=== PATIENT | male | born 1940 | race Caucasian/White ===

== ENCOUNTER → 2017-03-14 | Outpatient (CLI) | payer OTHER ==
[~2017-03-14] MED LIST: ACET-1256 PO; ASPEC325 PO; CLOP1TAB15 PO; HYDC25 PO; METO25TA56 PO; METO50TA16 PO; MULT-506 PO; SIMV40TA2 PO
[2017-03-14 13:28] LABS: ALT/SGPT 59 U/L (12-78); AST/SGOT 48 U/L (15-37); BLOOD UREA NITROGEN 20 mg/dl (7-18); BUN/CREATININE RATIO 19.6 (10-20); CALCIUM 9.1 mg/dl (8.5-10.1); CARBON DIOXIDE 31 mmol/L (21-32); CHLORIDE 103 mmol/L (98-107); GLUCOSE 96 mg/dl (70-99); POTASSIUM 3.6 mmol/L (3.5-5.1); SODIUM 141 mmol/L (136-145)
[2017-03-14 13:32] LABS: CHOLESTEROL 107 mg/dl (0-200); HDL CHOLESTEROL 36 mg/dl; LDL CHOLESTEROL CALCULATED 53 mg/dl; TRIGLYCERIDES 88 mg/dl (0-150); VERY LOW DENSITY LIPOPROT CALC 18 mg/dl
== END | disposition home or self-care (01) ==
LOC: C.LABMFLN 06:59
PROVIDERS: ATTEND Family Medicine
DX: I10 Essential (primary) hypertension (principal); E78.00 Pure hypercholesterolemia, unspecified; I25.10 Atherosclerotic heart disease of native coronary artery without angina pectoris

== ENCOUNTER → 2017-09-12 | Outpatient (CLI) | payer OTHER ==
[2017-09-12 13:10] LABS: BASO % 0.7 %; BASO ABS # 0.03 K/uL (0-0.2); COMPLETE YES; EOS % 3.5 %; HEMATOCRIT 45.3 % (42-52); IG% 0.2 %; LYMPH % 28.3 %; LYMPH ABS # 1.14 K/uL (1.2-3.4); MEAN CELL VOLUME 84.5 fL (80-100); MEAN CORPUSCULAR HEMOGLOBIN 29.5 pg (25-34); MEAN CORPUSCULAR HGB CONC 34.9 g/dl (32-36); MEAN PLATELET VOLUME 9.9 fL (7.4-10.4); MONO % 13.6 %; NEUT % 53.7 %; PLATELET COUNT 173 K/uL (130-400); RED BLOOD COUNT 5.36 M/uL (4.7-6.1); WHITE BLOOD COUNT 4.03 K/uL (4.8-10.8)
[2017-09-12 13:46] LABS: ALT/SGPT 70 U/L (12-78); AMYLASE 157 U/L (25-115); BLOOD UREA NITROGEN 18 mg/dl (7-18); BUN/CREATININE RATIO 16.2 (10-20); CARBON DIOXIDE 31 mmol/L (21-32); CHLORIDE 102 mmol/L (98-107); CREATININE 1.08 mg/dl (0.60-1.40); GLUCOSE 112 mg/dl (70-99); POTASSIUM 3.3 mmol/L (3.5-5.1); SODIUM 138 mmol/L (136-145)
[2017-09-12 13:49] LABS: ALB/GLOB RATIO 1.1 (0.9-2); ALKALINE PHOSPHATASE 62 U/L (45-117); AST/SGOT 49 U/L (15-37)
== END | disposition home or self-care (01) ==
LOC: C.LABMFLN 07:52
PROVIDERS: ATTEND Family Medicine
DX: R10.12 Left upper quadrant pain (principal); R10.13 Epigastric pain

== ENCOUNTER → 2017-09-16 | Outpatient (CLI) | payer OTHER ==
[2017-09-16 12:40] LABS: URINE APPEARANCE CLEAR (CLEAR); URINE BILIRUBIN NEG (NEG); URINE COLOR DK YELLOW; URINE NITRITE NEG (NEG); URINE PH 5.5 (4.5-7.5); URINE SPECIFIC GRAVITY 1.028 (1.000-1.030); UROBILINOGEN NEG (NEG)
[2017-09-16 12:46] LABS: MANUAL MICROSCOPIC REQUIRED? NO; REVIEW REQ? NO
[2017-09-16 13:34] LABS: AST/SGOT 39 U/L (15-37); BLOOD UREA NITROGEN 19 mg/dl (7-18); CALCIUM 9.1 mg/dl (8.5-10.1); CARBON DIOXIDE 31 mmol/L (21-32); CHLORIDE 102 mmol/L (98-107); CREATININE 1.06 mg/dl (0.60-1.40); GLUCOSE 103 mg/dl (70-99); POTASSIUM 4.1 mmol/L (3.5-5.1); SODIUM 136 mmol/L (136-145)
[2017-09-16 13:37] LABS: ALT/SGPT 52 U/L (12-78); CHOLESTEROL 115 mg/dl (0-200); CHOLESTEROL/HDL RATIO 3.4; HDL CHOLESTEROL 34 mg/dl; LDL CHOLESTEROL CALCULATED 56 mg/dl; TRIGLYCERIDES 127 mg/dl (0-150); VERY LOW DENSITY LIPOPROT CALC 25 mg/dl
== END | disposition home or self-care (01) ==
LOC: C.LABMFLN 07:02
PROVIDERS: ATTEND Family Medicine
DX: R10.12 Left upper quadrant pain (principal); R10.32 Left lower quadrant pain; I25.10 Atherosclerotic heart disease of native coronary artery without angina pectoris; E78.00 Pure hypercholesterolemia, unspecified; I10 Essential (primary) hypertension

== ENCOUNTER → 2017-09-17 | Outpatient (CLI) | payer OTHER ==
--- NOTE | 2017-09-17 07:05 | DIAGNOSTIC IMAGING REPORT ---
ABDOMEN LIMITED (US) CLINICAL HISTORY: 77 years-old Male presenting with R10.12 Abdominal pain, acute, left upper [id number] Epigastric. TECHNIQUE: Real-time grayscale and limited color Doppler ultrasound imaging of the abdomen limited to the right upper quadrant was performed. COMPARISON: None. FINDINGS: Pancreas: Visualized portions of the pancreatic head and body normal. Liver: Normal echogenicity and echotexture. The liver measures 15.7 cm in maximal sagittal dimension. No sonographic evidence of hepatic mass. Main portal vein patent with normal directional flow. Biliary: No intrahepatic biliary ductal dilatation. Common bile duct measures up to 4 mm in diameter. Gallbladder: Gallstones without evidence of gallbladder distention, wall thickening, or pericholecystic fluid or inflammatory change. Kidneys: Normal in appearance. No hydronephrosis. Spleen: Normal appearance and size, measuring 10 cm. Ascites: None. IMPRESSION: Cholelithiasis without evidence of cholecystitis or biliary ductal dilatation. Electronically signed by: Los Howard M.D. 09/17/2017 7:04 AM Dictated Date/Time: 09/17/2017 7:02 AM
--- NOTE | 2017-09-17 07:53 | DIAGNOSTIC IMAGING REPORT ---
GI SERIES W/AIR ROUTINE CLINICAL HISTORY: R10.12 Abdominal pain, acute, left upper [id number] epigastric pain COMPARISON STUDY: None FLUOROSCOPY TIME: 2.5 minutes. NUMBER OF FLUOROSCOPIC IMAGES: 20 FINDINGS: The patient swallowed effervescent granules and barium without difficulty. There is a sliding hiatal hernia. There is very subtle granularity to the distal esophageal mucosa, likely secondary to reflux esophagitis. No gastric masses or ulcerations are visualized. There is subtle nodularity of the duodenal bulb, possibly secondary to lymphoid hypertrophy. No ulcers are visualized. There is no gastric outlet obstruction. The ligament Treitz is located in the normal anatomical position. IMPRESSION: 1. Moderate hiatal hernia 2. Slight nodularity of the duodenal bulb possibly secondary to lymphoid hyperplasia 3. Subtle granularity involving the distal esophageal mucosa, possibly secondary to reflux esophagitis Electronically signed by: Dave Waters M.D. 09/17/2017 7:51 AM Dictated Date/Time: 09/17/2017 7:49 AM
== END | disposition home or self-care (01) ==
LOC: C.ULTR 06:32
PROVIDERS: ATTEND Family Medicine
DX: R10.12 Left upper quadrant pain (principal); R10.13 Epigastric pain; K80.20 Calculus of gallbladder without cholecystitis without obstruction

== ENCOUNTER 2022-04-16 06:32 | Observation (INO) ==
--- NOTE | 2022-03-14 08:35 | PAT Medication Instructions ---
Medication Instructions Date of Service March 14, 2022 Home Medications Medication Instructions Recorded lisinopril 5 mg tablet 5 mg PO QAM #90 tab 03/17/21 metoprolol succinate 50 mg 25 mg PO .COMPLEX #180 tab 08/21/21 tablet,extended release 24 hr hydrocortisone 2.5 % topical cream 1 applic TOPICAL TID PRN #30 g 10/18/21 omeprazole 20 mg capsule,delayed 20 mg PO DAILY PRN #30 cap 10/23/21 release hydrochlorothiazide 25 mg tablet 25 mg PO QAM #90 tab 10/30/21 atorvastatin 80 mg tablet 80 mg PO PM #90 tab 12/27/21 acetaminophen 325 mg capsule (Tylenol) 325 mg PO Q6H PRN aspirin 81 mg tablet,delayed release 81 mg PO PM multivitamin 1 tab PO QAM lisinopril 5 mg tablet 5 mg PO QAM potassium chloride 10 mEq tablet,extended release 10 meq PO UD metoprolol succinate 50 mg tablet,extended release 24 hr 25 mg PO .COMPLEX hydrocortisone 2.5 % topical cream 1 applic TOPICAL TID PRN omeprazole 20 mg capsule,delayed release 20 mg PO DAILY PRN hydrochlorothiazide 25 mg tablet 25 mg PO QAM atorvastatin 80 mg tablet 80 mg PO PM Continue as directed metoprolol succinate 50 mg tablet,extended release 24 hr 25 mg PO .COMPLEX STOP taking 24 hours before surgery hydrocortisone 2.5 % topical cream 1 applic TOPICAL TID PRN DO NOT take the morning of surgery multivitamin 1 tab PO QAM lisinopril 5 mg tablet 5 mg PO QAM potassium chloride 10 mEq tablet,extended release 10 meq PO UD hydrochlorothiazide 25 mg tablet 25 mg PO QAM Take morning of surgery With a small sip of water, OTHERWISE NOTHING TO EAT OR DRINK AFTER MIDNIGHT: acetaminophen 325 mg capsule (Tylenol) 325 mg PO Q6H PRN(if needed) omeprazole 20 mg capsule,delayed release 20 mg PO DAILY PRN(if needed) Take evening before surgery acetaminophen 325 mg capsule (Tylenol) 325 mg PO Q6H PRN(if needed) aspirin 81 mg tablet,delayed release 81 mg PO PM (unless directed otherwise by surgeon) atorvastatin 80 mg tablet 80 mg PO PM Other Notes If you have any questions please call us at [phone] or [phone] or [phone] or [phone]
--- NOTE | 2022-03-16 13:32 | Anesthesiology Consultation ---
Date of Service March 16, 2022 Assessment & Plan (1) Encounter for pre-operative examination: - Patient acceptable risk for surgery pending surgeon-ordered cardiology preop evaluation (03/21; MNP) and PCP preop evaluation (03/29; MNP) - COVID screening: Per assessment on 03/16: No known COVID-19 positive contacts or current COVID-19 related symptoms. Travel screen negative. Patient vaccinated. Surgeon arranging preop COVID testing. Awaiting results. Chart Review Chart Review: Patient seen in Pre Admission Testing Teaching & Discussion Pre-Anesthesia Teaching/Discussion Notes: Instructed NPO after midnight before surgery,except medications with 15 cc of water. Medication instructions provided according to the PAT guidelines. History Surgery Operation Date: 04/16/22 07:15 Proposed Procedures p Right Reversed Total Shoulder Arthroplasty - Omer Gaona MD Height/Weight Height: 5 ft 8 in Weight: 70.4 kg Allergies Allergy/AdvReac Type Severity Reaction Status Date / Time No Known Allergies Verified 03/14/22 07:34 Medications Home Medications Medication Instructions Recorded Confirmed Last Taken acetaminophen 325 mg capsule 325 mg PO Q6H PRN 02/16/19 03/14/22 03/08/19 (Tylenol) aspirin 81 mg tablet,delayed 81 mg PO PM 02/16/19 03/14/22 03/08/19 release multivitamin 1 tab PO QAM 02/16/19 03/14/22 03/08/19 lisinopril 5 mg tablet 5 mg PO QAM #90 tab 03/17/21 03/14/22 Unknown potassium chloride 10 mEq 10 meq PO UD 06/12/21 03/14/22 Unknown tablet,extended release metoprolol succinate 50 mg 25 mg PO .COMPLEX #180 tab 08/21/21 03/14/22 Unknown tablet,extended release 24 hr hydrocortisone 2.5 % topical cream 1 applic TOPICAL TID PRN #30 g 10/18/21 03/14/22 Unknown omeprazole 20 mg capsule,delayed 20 mg PO DAILY PRN #30 cap 10/23/21 03/14/22 Unknown release hydrochlorothiazide 25 mg tablet 25 mg PO QAM #90 tab 10/30/21 03/14/22 Unknown atorvastatin 80 mg tablet 80 mg PO PM #90 tab 12/27/21 03/14/22 Unknown Past Medical History Medical History (Updated 03/16/22 @ 13:30 by Shy Bain) CAD in [place] artery s/p CABG (2008), stent (2011) Diverticular disease GERD (gastroesophageal reflux disease) mild Hearing deficit BL MAXWELL History of sciatica Hyperlipidemia Hypertension Osteoarthritis Right lumbar radiculopathy Exercise / Class Metabolic Activity II 4-5 Yardwork/Stairs/Walk up hill Past Family History Family History Father Cirrhosis Mother CHF (congestive heart failure) Heart disease Hypertension Sister Cancer Breast cancer Brother Cancer Past Surgical History Surgical History (Updated 03/16/22 @ 13:30 by Shy Bain) History of appendectomy History of cardiac cath 2008 > CABG 2011 > stent x1 History of colonoscopy History of coronary artery bypass graft 2008 History of left cataract surgery History of prostate biopsy benign History of tooth extraction Hx of right cataract extraction S/P coronary artery stent placement 2011 S/P rotator cuff surgery right Status post Mohs surgery nose Past Anesthesia History No Hx of Anesthesia Complications and No Family Hx of Anesthesia Complications History of PONV No Hx of PONV and No Hx of Motion Sickness Social History Smoking Status: Former smoker tobacco type: cigarettes Do You Dip or Chew Tobacco: No Smoking End Date: Quit 1966 Hx Alcohol Use: Yes (Occasional) Alcohol type: wine Hx Substance Use: No substance use type: does not use Review of Systems Patient denies chest pain, shortness of breath, dyspnea on exertion, fever, chills, cough, wheezing, palpitations. Physical Exam Vital Signs VITALS BP 117/71 P 69 TEMP 98.5 SP02 95%RA RESP 16 PHYSICAL Full cervical extension range of motion. Full TMJ range of motion. TMD 3 finger breaths Mallampati Score 4 (small oral opening) Dentition: upper/lower full dentures Lungs: clear throughout to auscultation Cardiac: regular rate and rhythm, no murmurs noted Spine: normal Carotid arteries: negative bruit Extremities: no edema Lab Results Anesthesia Preop Results Results Anesthesia Widget: WBC 5.26 K/uL (4.8-10.8) 03/16/22 Hgb 14.0 g/dL (14.0-18.0) 03/16/22 Hct 41.8 % (42-52) L 03/16/22 Plt 174 K/uL (130-400) 03/16/22 Na 138 mmol/L (136-145) 03/16/22 K 3.7 mmol/L (3.5-5.1) 03/16/22 Cl 102 mmol/L (98-107) 03/16/22 CO2 28 mmol/L (21-32) 03/16/22 BUN 25 mg/dl (6-23) H 03/16/22 Creat 1.19 mg/dl (0.6-1.4) 03/16/22 Glucose Level 126 mg/dl (70-99(Fasting)) H 03/16/22 PT 10.6 Seconds (9.0-12.0) 03/16/22 PTT 26.8 Seconds (21.0-31.0) 03/16/22 INR 1.0 (0.9-1.1) 03/16/22 HA1c 6.2 % (4.5-5.6) H 03/16/22 Urine Color Yellow 03/16/22 Urine Appearance Clear (Clear) 03/16/22 Urine pH 6.0 (4.5-7.5) 03/16/22 Urine Specific [place] 1.019 (1.000-1.030) 03/16/22 Urine Protein Negative (Negative) 03/16/22 Urine Glucose (UA) Negative (Negative) 03/16/22 Urine Ketones Negative (Negative) 03/16/22 Urine Blood Negative (Negative) 03/16/22 Urine Nitrite Negative (Negative) 03/16/22 Urine Bilirubin Negative (Negative) 03/16/22 Urine Urobilinogen Negative (Negative) 03/16/22 Urine Leukocyte Esterase Negative (Negative) 03/16/22 Blood Type A Positive 03/16/22 Antibody Screen NEGATIVE 03/16/22 Testing Electrocardiogram Date: 06/22/21 Findings: + SB @ (57) Chest X-Ray Date: 03/16/22 FINDINGS: Lung volumes are normal. Lungs are clear. There is no pneumothorax or pleural effusion. Cardiac size is normal. Mediastinal contours are normal. There is no evidence for pulmonary edema. There are median sternotomy wires and mediastinal surgical clips. Suspected nipple shadow projects over the right lower lung. IMPRESSION: No acute cardiopulmonary findings. Echocardiogram Date: 07/05/20 EF 60 to 65%. No regional motion abnormality. Moderate RAD. Moderate to severe TR. Mild MR. Mild pulmonary hypertension. Estimated RVSP 30 mmHg. Mild KS.
--- NOTE | 2022-04-15 19:04 | History & Physical Report ---
Date of Service April 15, 2022 Assessment & Plan (1) Rotator cuff arthropathy of right shoulder: Plan: Treatment options discussed with patient. He has faile conservative measures and would like to proceed with surgical intervention. Risks, benefits and alternatives to surgery including but not limited to infection, DVT, pain, stiffness, need for revision surgery, damage to blood vessels, damage to nerves, PE, , were discussed with the patient and they wish to proceed. Plan on right reverse total shoulder arthroplasty scheduled for 04/16/22 at [facility] with Dr. Gaona. All questions answered. He will follow up post op. History of Present Illness Chief Complaint: right shoulder pain Primary Care Provider: Jairo Love MD 82 year old male with PMHx significant for CAD, GERD, HTN, high cholesterol who presents with ongoing right shoulder pain. Patient underwent rotator cuff repair last year and was found to have persistent pain and weakness. MRI confirmed failure of repair with massive retraction. Discussed with patient that this would not be amenable to repair and would require arthroplasty. He has faied conservative measures including injection and therapy. Patient denies headaches, sweats, fevers, chills, double vision, blurred vision, cough, sore throat, dysphagia, chest pain, sob, wheezing, n/v/d/c, numbness, tingling, fatigue, urinary symptoms, mood disorders. ROS positive for right shoulder pain and stiffness. Allergies Allergy/AdvReac Type Severity Reaction Status Date / Time No Known Allergies Verified 03/29/22 13:52 Home Medications Medication Instructions Recorded Confirmed Type acetaminophen 325 mg capsule 325 mg PO Q6H PRN Pain 02/16/19 03/29/22 History (Tylenol) aspirin 81 mg tablet,delayed 81 mg PO PM 02/16/19 03/29/22 History release multivitamin 1 tab PO QAM 02/16/19 03/29/22 History lisinopril 5 mg tablet 5 mg PO QAM #90 tabs 03/17/21 03/29/22 Rx potassium chloride 10 mEq 10 meq PO UD 06/12/21 03/29/22 History tablet,extended release metoprolol succinate 50 mg 25 mg PO .COMPLEX #180 tabs 08/21/21 03/29/22 Rx tablet,extended release 24 hr hydrocortisone 2.5 % topical cream 1 applic topical TID PRN skin 10/18/21 03/29/22 Rx irritation #30 grams omeprazole 20 mg capsule,delayed 20 mg PO DAILY PRN Heartburn #30 10/23/21 03/29/22 Rx release caps hydrochlorothiazide 25 mg tablet 25 mg PO QAM #90 tabs 10/30/21 03/29/22 Rx atorvastatin 80 mg tablet 80 mg PO PM #100 tabs 04/04/22 Rx Past Med/Surg History Medical History (Updated 04/15/22 @ 19:03 by Darwin Reynaga PA-C) CAD in [place] artery s/p CABG (2008), stent (2011) Diverticular disease GERD (gastroesophageal reflux disease) mild Hearing deficit BL MAXWE[place] History of sciatica Hyperlipidemia Hypertension Osteoarthritis Right lumbar radiculopathy Right shoulder pain Surgical History History of appendectomy History of cardiac cath 2008 > CABG 2011 > stent x1 History of colonoscopy History of coronary artery bypass graft 2008 History of left cataract surgery History of prostate biopsy benign History of tooth extraction Hx of right cataract extraction S/P coronary artery stent placement 2011 S/P rotator cuff surgery right Status post Mohs surgery nose Family History Father Cirrhosis Mother CHF (congestive heart failure) Heart disease Hypertension Sister Cancer Breast cancer Brother Cancer Social History Smoking Status: Former smoker Age Started Using Tobacco: 14; Age Quit Using Tobacco: 27; Second Hand Exposure: No; Hx Alcohol Use: Yes (Occasional) Alcohol type: wine Hx Substance Use: No Preferred Language: Ukrainian Communication Ability: Effective 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 Beliefs That Will Affect Care: None Current Living Situation: Alone current occupational status: retired Feels Safe at Home: Yes caffeine: No Dental Care, Regularly: No Physical Activity Frequency: Does not Exercise Seatbelt Use: always Do you think of yourself as: straight/heterosexual Assistive Devices: Denture - Upper, Denture - Lower, Glasses and Hearing Aid - Bilateral Review of Systems All systems reviewed & are unremarkable except as noted in HPI & below Physical Exam Constitutional: well developed and well nourished; no acute distress Eyes: PERRL, conjunctivae normal, anicteric sclerae ENMT: external ear and nose normal, oropharynx normal Neck: trachea midline, no thyromegaly Respiratory: normal respiratory effort, lungs clear to auscultation Cardiovascular: RRR, no murmur, no edema Musculoskeletal: Right shoulder: Tenderness anterolateral acromion. Crepitus with ROM. FF to 120, abduction to 150, ER to 45 degrees. Weakness with strength testing, 3/5 abduction, 4+/5 ER and IR. Skin: no rashes, warm and dry Neurologic: patellar DTR's 2+ bilat, sensation intact Psychiatric: A+Ox3, euthymic affect Results & Data ([place]) Diagnostic Findings Right shoulder radiographs demonstrate mild proximal migration humeral head, degenerative changes AC joint. MRI demonstrates failed rotator cuff repair with massive tear with retraction.
[~2022-04-16 06:32] MED LIST changes: -ACET-1256 PO; +ACETAMINOPHEN 500 MG TAB PO SCH; -ASPEC325 PO; +BUPIVACAINE 0.25% 30 ML VIAL ONE; +BUPIVACAINE 0.5 % 5 MG/1 ML PF 10ML VIAL ONE; -CLOP1TAB15 PO; +CeleBREX 200 MG CAP PO SCH; +FAMOTIDINE 20 MG TAB PO SCH; +GABAPENTIN 300 MG CAP PO SCH; -HYDC25 PO; +LR 15ML/HR IV SCH; -METO25TA56 PO; -METO50TA16 PO; +METOCLOPRAMIDE HCL 10 MG TABLET PO SCH; -MULT-506 PO; -SIMV40TA2 PO; +TRANEXAMIC ACID 1,000 MG **IV Intra-op IV SCH; +TRANEXAMIC ACID 1,000 MG **IV Pre-op IV SCH; +ceFAZolin 1000MG 1,000 MG/7.5 ML SYR IV SCH; +dexAMETHasone 4 MG TAB PO SCH
[2022-04-16] MEDS ORDERED: PROPOFOL IV EMULSION 10 MG/ML 20 ML VIAL IV ONE (07:08)
[2022-04-16] MEDS ORDERED: DEXAMETHASONE SOD INJ 4 MG/ML VIAL ONE (07:08)
[2022-04-16] MEDS ORDERED: LIDOCAINE 2% 2 ML VIAL/AMP(20MG/ML) INFIL ONE (07:08)
[2022-04-16] MEDS ORDERED: ONDANSETRON INJ 2 MG/ML 2 ML VIAL ONE (07:08)
[2022-04-16] MEDS ORDERED: ROCURONIUM BROMIDE 10 MG/ML 5 ML VIAL IV ONE (07:08)
[2022-04-16] MEDS ORDERED: fentaNYL citrate 100 MCG/2 ML VIAL ONE (07:09)
--- NOTE | 2022-04-16 07:19 | History & Physical Bridge Note ---
Date of Service April 16, 2022 History & Physical Bridge Note I have examined the patient, reviewed the History & Physical and in the interval since the performance of the History & Physical I have noted the following changes of clinical significance: Resolving bruising right shoulder most likely related to some subacute internal bleeding due to being on aspirin and [id number] articulation.
[2022-04-16] MEDS ORDERED: ONDANSETRON INJ 2 MG/ML 2 ML VIAL IV PRN ×2 (07:48→13:25)
[2022-04-16] MEDS ORDERED: PROMETHAZINE HCL 6.25 MG in SODIUM CHLORIDE 0.9% 50 ML IV PRN (07:48)
[2022-04-16] MEDS ORDERED: fentaNYL citrate 100 MCG/2 ML VIAL IV PRN (07:48)
[2022-04-16] MEDS ORDERED: ATROPINE SULFATE 0.1 MG/ML 10ML SYR IV PRN (07:48)
[2022-04-16] MEDS ORDERED: ePHEDrine sulfate 50 MG/ML AMP IV PRN (07:48)
[2022-04-16] MEDS ORDERED: MIDAZOLAM HCL 1 MG/ML 2ML VIAL ONE (08:47)
[2022-04-16] MEDS ORDERED: ePHEDrine sulfate 50 MG/ML SYR ONE (09:30)
[2022-04-16] MEDS ORDERED: GLYCOPYRROLATE 0.2 MG/ML VIAL ONE (11:30)
[2022-04-16] MEDS ORDERED: NEOSTIGMINE METHYLSULFATE 1 MG/ML 10ML VIAL ONE (11:30)
--- NOTE | 2022-04-16 11:41 | Operative Report ---
Post Operative Report Pre & Post Diagnosis Operation Date: 04/16/22 09:25 Pre-Op Diagnosis: Right Shoulder Rotator Cuff Arthropathy, failed rotator cuff repair, irreparable rotator cuff tear. Post-Op Diagnosis: Right Shoulder Rotator Cuff Arthropathy, failed rotator cuff repair, irreparable rotator cuff tear, long head biceps rupture I identified the patient and participated in the time-out.: Yes Procedure Operation Date: 04/16/22 09:25 Actual Procedures p Right Reversed Total Shoulder Arthroplasty--Uncemented(Right), removal hardware (suture anchors multiple and suture material)- Omer Gaona MD Surgeon Omer Gaona MD Sewer Pipe Layer Helper Tay MANUEL Estimated Blood Loss 80 Findings Consistent with Post-Op Diagnosis Specimens Humeral head cut Drains 2 Hemovac Anesthesia Type General Regional Complications none Disposition Disposition: Recovery Room Indications 82-year-old male who had a prior rotator cuff repair with pain weakness right shoulder with MRI demonstrating failed rotator cuff repair with retracted tissue prior suture anchors subacromial bursitis and glenohumeral joint effusions. Proximal migration of the humerus Description of Procedure The patient was taken to the operating room and anesthetized under regional block and general anesthetic. The patient was positioned on the operating table in a 30 beach chair position with a towel roll under the medial border of the right scapula. The arm was draped free to be able to manipulate the shoulder as needed. The right upper extremity was prepped and draped in usual sterile fashion. Exam demonstrated 150 degrees forward flexion 90 degrees abduction 80 degrees external rotation. There are some subacute bruising that was resolving area around the shoulder and he also had some anterior subluxation of the sternoclavicular joint on the ipsilateral side. An anterior deltopectoral approach was performed. A longitudinal incision was made in the deltopectoral interval. The skin was incised sharply. Subcutaneous flaps were elevated off the fascia. The cephalic vein was dissected out and retracted lateral with the deltoid. The clavipectoral fascia was divided at the lateral margin of the conjoined tendon and extended up to the CA ligament. The following findings were noted: Biceps tendon was ruptured and there was a thickened biceps sheath noted. There was chronic subacromial bursitis and a full-thickness rotator cuff tear with a strand of the supraspinatus still attached but large gap between the supraspinatus and posterior intact cuff tissue which was the teres minor and a small portion of the infraspinatus only. The subscapularis was still intact.. The upper centimeter of the pectoralis was released for inferior exposure. A self-retaining retractor was placed. The biceps tendon sheath was divided and resected proximally. The subscapularis muscle fibers were split longitudinally at the level of the circumflex vessels. The circumflex vessels were identified and tied off with silk ties and divided laterally. A Kitner elevator was used to free up the inferior fibers of the subscapularis off of the capsule. The axillary nerve was identified with a tug test and protected with a blunt Rayshawn retractor between the nerve and the capsule. The subscapularis tendon was then taken down off of the lesser tuberosity subperiosteally, a Vicryl traction suture was placed and a subperiosteal dissection was performed along the neck of the humerus as the arm was gradually externally rotated exposing the humeral h ead. The humeral head findings demonstrated no osteophytes and minimal arthritic changes. A Carpenter elevator was used to assist in releasing the capsule of the neck of the humerus. The capsule was divided with Rhoades scissors down to the glenoid released off the anterior glenoid and the rotator interval was released to meet the capsular release and a 360 release of the subscapularis was accomplished. A Fukuda retractor was placed into the joint retracting the humeral head posterior. Glenoid findings demonstrated minimal arthritic changes still with intact articular cartilage. The labrum and biceps tendon was resected. an anterior-inferior and posterior inferior capsular release were performed with electrocautery and a Carpenter elevator on bone with the axillary nerve protected inferiorly by the retractor. Attention was then taken to the humeral preparation. Initially for exposure of the portion of rotator cuff that was still attached to the greater tuberosity which was just under a centimeter was released. The cutting guide was placed into the humeral head. It was positioned at 20 of retroversion. Oscillating saw was used to resect the humeral head giving the cut above the level of the posterior rotator cuff insertion site. Multiple peek suture anchors were removed along with suture material that were required to be removed in order to instrument the canal. [place] and scalpel were used. The humerus was then prepared for the stem. I used the ascend flex stem from [employer]. The sizing broaches were used followed by trial broaches up to a size 5 which had the appropriate fit and fill. The appropriate sized cut protector was placed. The humerus was then retracted posterior to the glenoid. The glenoid was sized for a 25 mm baseplate. The guide for the baseplate was positioned in a 10 inferior tilt and the central drill hole was made. The reamer for the 25 mm baseplate was used. The central drill was widened for the peg. The hydroxyapatite-coated 25 mm aequalis baseplate was impacted into position. The base plate was transfixed with superior and inferior locking screws and anterior and posterior compression screws with stable fixation. The fan reamer was used for the 36 millimeter glenoid sphere. After irrigation the +2 offset 36 mm glenoid sphere was impacted onto the baseplate and the security screw was tightened. Attention was taken back to the humerus. The cut protector was removed and the +0 high offset humeral tray trial was assembled to the trial stem rotated appropriately to get bony coverage and then screwed in position. A trial reduction was performed. A +6, 36 mm reversed trial insert demonstrated good stability and no shuck. The trials were removed. 3 drill holes are made into the harder bone in the bicipital groove area and 3 #5 FiberWire sutures were placed transosseously. The canal was irrigated with pulsatile lavage saline solution. The final component was assembled. The final component was 5B long ascend flex stem assembled to plus or high offset tray and a +6, 36 mm reversed insert. This was then impacted into the humerus with a tight press-fit. It was reduced to the glenoid sphere. Stability was verified. Subscapularis was repaired with the #5 FiberWire sutures using Ross-John suture technique. Lateral row soft tissue repair was performed with #2 FiberWire [id number] sutures. The portion of supraspinatus was rotated posteriorly and the interval between that and the intact remaining infraspinatus was repaired with [id number] #2 FiberWire sutures in order to improve external rotation strength. The pectoralis was repaired with #2 FiberWire [id number] sutures . The arm was taken through a range of motion which demonstrated 150 degrees forward flexion 100 degrees abduction and 60 degrees external rotation without any tension on the repair. The implant was stable through the range of motion tested. The wound was copiously irrigated. 2 Hemovac drains were placed. The deltopectoral interval was closed with [id number] #1 Vicryl sutures. The subcutaneous tissues were closed with 2-0 Vicryl sutures. The skin was closed with brianna. Sterile dressings were applied and a shoulder immobilizer. Tay Reynaga my physician assistant elementary teacher acted as residential assistant throughout the procedure .He performed functions including arm positioning, soft tissue retraction, instrument management, suture management and performed the subcutaneous and skin closure and will participate in the postoperative care of the patient. I attest to the content of the Intraoperative Record and any orders documented therein. Any exceptions are noted below.
--- NOTE | 2022-04-16 13:13 | XRay Report ---
XR shoulder RT min 2V routine CLINICAL HISTORY: Post shoulder surgery. Status post total shoulder replacement COMPARISON STUDY: No previous studies for comparison. TECHNIQUE: 2 right shoulder views FINDINGS: The patient is status post total shoulder replacement with humeral head and glenoid compone nts. The prosthetic components are in anatomic alignment with no acute abnormality identified. Skin s taples are present from the recent procedure. IMPRESSION: 1. Status post total shoulder replacement ACT 112: Negative or not required by law. Electronically signed by: Yakov Wick M.D. 04/16/2022 1:12 PM
[2022-04-16] MEDS ORDERED: HYDROCORTISONE 2.5% CR 30 GM TUBE EXT PRN (13:25)
[2022-04-16] MEDS ORDERED: oxyCODONE HCL IR 5 MG TAB (IMMEDIATE RELEASE) PO PRN (13:25)
[2022-04-16] MEDS ORDERED: METOCLOPRAMIDE HCL INJ 5 MG/ML 2 ML VIAL IV PRN (13:25)
[2022-04-16] MEDS ORDERED: HYDROmorphone INJ 0.5 MG/0.5 ML SYR IV PRN (13:25)
[2022-04-16] MEDS ORDERED: bisacodyL 10 MG SUPP PR PRN (13:25)
[2022-04-16] MEDS ORDERED: MAGNESIUM HYDROXIDE SUSP 30 ML UDC PO PRN (13:25)
[2022-04-16] MEDS ORDERED: NALOXONE HCL 0.4 MG/1 ML VIAL/CARP IV PRN (13:25)
[2022-04-16] MEDS ORDERED: PANTOprazole 40 MG TAB PO PRN (13:33)
--- NOTE | 2022-04-16 13:46 | Anesthesiology Progress Note ---
Date of Service April 16, 2022 Anesthesia Post Procedure Vital Signs Vital Signs: Temp Pulse Pulse Resp BP Pulse Ox O2 Del Method 04/16/22 13:20 76 17 123/64 92 Room Air 04/16/22 13:10 71 16 115/68 91 Room Air 04/16/22 12:55 74 18 128/70 94 Room Air 04/16/22 12:40 70 19 126/72 92 Room Air 04/16/22 12:30 36.1 C L 74 22 116/76 93 Room Air 04/16/22 12:20 70 16 134/75 97 Oxymask 04/16/22 12:10 73 17 142/94 H 96 Oxymask 04/16/22 12:00 71 16 126/74 98 Oxymask 04/16/22 11:52 36 C L 70 14 131/74 99 Oxymask 04/16/22 06:58 36.8 C 65 18 138/73 94 Room Air O2 Flow Rate 04/16/22 13:20 04/16/22 13:10 04/16/22 12:55 04/16/22 12:40 04/16/22 12:30 04/16/22 12:20 5 04/16/22 12:10 5 04/16/22 12:00 5 04/16/22 11:52 9 04/16/22 06:58 Transfer of Care Handoff Completed per policy Notes Mental Status: alert / awake / arousable Patient Amnestic to Procedure: Yes Nausea / Vomiting: adequately controlled Pain: adequately controlled Airway Patency, RR, SpO2: stable & adequate BP & HR: stable & adequate Hydration State: stable & adequate Anesthetic Complications: no major complications apparent Notes: block working well in pacu
[2022-04-16] MEDS: SODIUM CHLORIDE 0.9% 1000ML 1,000 ML IV SCH (14:10)
[2022-04-16] MEDS: ACETAMINOPHEN 500 MG TAB PO SCH ×3 (15:49→22:26)
[2022-04-16] MEDS ORDERED: POTASSIUM CHLORIDE 10 MEQ TABCR PO SCH (17:00)
[2022-04-16] MEDS: ceFAZolin 1000MG 1,000 MG/7.5 ML SYR IV SCH (18:35)
[2022-04-16] MEDS ORDERED: ATORVASTATIN 40 MG TAB PO SCH (21:00)
[2022-04-16] MEDS ORDERED: ASPIRIN 81 MG ECTAB PO SCH (21:00)
[2022-04-16] MEDS ORDERED: SENNA 8.6 MG TAB PO SCH (21:00)
[2022-04-16] MEDS: METOPROLOL SUCC 25MG EXT REL TAB PO SCH (21:12)
[2022-04-16] MEDS: DOCUSATE SODIUM 100 MG CAP PO SCH (21:12)
[2022-04-17] MEDS: SODIUM CHLORIDE 0.9% 1000ML 1,000 ML IV SCH (00:15)
[2022-04-17] MEDS: ceFAZolin 1000MG 1,000 MG/7.5 ML SYR IV SCH (00:59)
[2022-04-17] MEDS: ACETAMINOPHEN 500 MG TAB PO SCH (05:56)
[2022-04-17] MEDS: DOCUSATE SODIUM 100 MG CAP PO SCH (07:54)
[2022-04-17] MEDS: METOPROLOL SUCC 25MG EXT REL TAB PO SCH (07:55)
--- NOTE | 2022-04-17 08:27 | Orthopedic Progress Note ---
Date of Service April 17, 2022 Assessment & Plan (1) Rotator cuff arthropathy of right shoulder: Plan: Postop day #1 right reverse total shoulder arthroplasty -PT/OT: No formal therapy for 6 weeks. May do elbow/wrist/hand motion, shrugs, pendulums -Pain management as written -DVT prophylaxis: SCDs, aspirin 81 mg daily -A.m. labs are pending. We will hold lisinopril and hydrochlorothiazide this morning pending kidney function as well as his pressures have been a little soft this morning. -Discharge plan: Plan on discharge home, possibly later today. We will recheck patient later this morning or early afternoon for possible discharge home. Admission and Anticipated Discharge Date Admission Date: April 16, 2022 Subjective Patient is postop day 1 right reverse total shoulder. He is doing well overall. States he is feeling " a little out of it". Mild nausea. No chest pain, shortness of breath, lightheadedness or dizziness. Review of Systems Review of Systems: All systems reviewed & are unremarkable except as noted in Subjective Physical Exam Physical Exam: Right shoulder: Sling in place, dressing is clean, dry, intact. Fingers are mobile with good casino floorperson strength. Distally neurovascular status and sensation intact. Constitutional: WD/WN, vitals as above Results & Data ([facility]) Vital Signs (Past 12 Hours) Vital Signs Temp Pulse Pulse Resp BP Pulse Ox O2 Del Method 04/17/22 07:22 36.8 C 65 16 111/61 92 Room Air 04/17/22 03:45 37.0 C 67 18 104/56 L 92 Room Air 04/17/22 00:00 36.4 C L 70 18 109/63 93 Room Air 04/16/22 21:10 65 106/63 92
[2022-04-17 08:57] LABS: Basophils # (auto) 0.01 K/uL (0-0.2); Basophils % (auto) 0.1 %; Hematocrit (blood only) 38.2 % (40.1-51.0); Hemoglobin 12.6 g/dl (14.0-18.0); Immature Granulocytes # (auto) 0.06 K/uL (0.00-0.02); Immature Granulocytes % (auto) 0.5 %; Lymphocytes # (auto) 0.69 K/uL (1.2-3.4); Lymphocytes % (auto) 6.2 %; Mean Corpuscular Hemoglobin 27.6 pg (25.0-34.0); Mean Corpuscular Volume 83.6 fL (80.0-100.0); Mean Platelet Volume 9.3 fL (9.4-12.4); Monocytes # (auto) 0.73 K/uL (0.24-0.82); Monocytes % (auto) 6.6 %; Neutrophils % (auto) 86.6 %; Platelet Count 141 K/uL (130-400); RDW Coefficient of Variation 14.9 % (11.5-14.5); RDW Standard Deviation 45.1 fL (36.4-46.3); Red Blood Count 4.57 M/uL (4.63-6.08); White Blood Count 11.09 K/ul (4.8-10.8)
[2022-04-17] MEDS ORDERED: hydroCHLOROthiazide 25 MG TAB PO SCH (09:00)
[2022-04-17] MEDS ORDERED: lisinopril 5 MG TAB PO SCH (09:00)
[2022-04-17] MEDS ORDERED: MULTIVITAMIN TAB PO SCH ×2 (09:00)
[2022-04-17 09:20] LABS: BUN Creatinine Ratio 22.7 (10-20); Calcium 8.3 mg/dl (8.5-10.1); Creatinine Clr Calc Pharmacy 46.3 ml/min; Est GFR (African American) 65.5 ml/min; Est GFR (Non-African American) 56.5 ml/min; Potassium 4.1 mmol/L (3.5-5.1)
--- NOTE | 2022-04-17 17:29 | Hospitalist Consultation ---
Date of Consultation April 17, 2022 Assessment & Plan (1) Rotator cuff arthropathy of right shoulder: Stop day 1 surgery is planning on discharging (2) Hypercholesterolemia: Continue dyslipidemic therapy (3) CAD in [place] artery: Aspirin metoprolol lisinopril plus atorvastatin Patient seems cardiovascular stable on day of discharge History of Present Illness Attending Physician: Omer Gaona MD History of Present Illness medical management for post op right shoulder reverse replacement dyslipidema and htn, cardiovascular risk reduction Allergies Allergy/AdvReac Type Severity Reaction Status Date / Time No Known Allergies Verified 04/16/22 06:47 Home Medications Medication Instructions Recorded Confirmed Type aspirin 81 mg tablet,delayed 81 mg PO PM 02/16/19 04/16/22 History release multivitamin 1 tab PO QAM 02/16/19 04/16/22 History lisinopril 5 mg tablet 5 mg PO QAM #90 tabs 03/17/21 04/16/22 Rx potassium chloride 10 mEq 10 meq PO UD 06/12/21 04/16/22 History tablet,extended release metoprolol succinate 50 mg 25 mg PO .COMPLEX #180 tabs 08/21/21 04/16/22 Rx tablet,extended release 24 hr hydrocortisone 2.5 % topical cream 1 applic topical TID PRN skin 10/18/21 04/16/22 Rx irritation #30 grams omeprazole 20 mg capsule,delayed 20 mg PO DAILY PRN Heartburn #30 10/23/21 04/16/22 Rx release caps hydrochlorothiazide 25 mg tablet 25 mg PO QAM #90 tabs 10/30/21 04/16/22 Rx atorvastatin 80 mg tablet 80 mg PO PM #100 tabs 04/04/22 04/16/22 Rx acetaminophen 500 mg tablet 1,000 mg PO Q8 #60 tabs 04/17/22 Rx (Tylenol Extra Strength) cefadroxil 500 mg capsule 500 mg PO BID #14 caps 04/17/22 Rx oxycodone 5 mg tablet 5 - 10 mg PO .Q4h-6h PRN pain #30 04/17/22 Rx tabs Patient History Medical History CAD in [place] artery s/p CABG (2008), stent (2011) Diverticular disease GERD (gastroesophageal reflux disease) mild Hearing deficit [place] History of sciatica Hyperlipidemia Hypertension Osteoarthritis Right lumbar radiculopathy Right shoulder pain Surgical History History of appendectomy History of cardiac cath 2009 > CABG 2012 > stent x1 History of colonoscopy History of coronary artery bypass graft 2009 History of left cataract surgery History of prostate biopsy benign History of tooth extraction Hx of right cataract extraction S/P coronary artery stent placement 2011 S/P rotator cuff surgery right Status post Mohs surgery nose Family History Father Cirrhosis Mother CHF (congestive heart failure) Heart disease Hypertension Sister Cancer Breast cancer Brother Cancer Social History Smoking Status: Former smoker Age Started Using Tobacco: 14; Age Quit Using Tobacco: 27; Smoking End Date: Quit 1966; Second Hand Exposure: No; Do You Dip or Chew Tobacco: No; Tobacco Cessation Education Requested by Patient: No Hx Alcohol Use: Yes (Occasional) Alcohol type: wine Hx Substance Use: No Preferred Language: Spanish Communication Ability: Effective Rehab Office Coordinator Required: No Beliefs That Will Affect Care: None Current Living Situation: Alone current occupational status: retired Other Information That Helps Us Care for You: No Feels Safe at Home: Yes Safety Concerns: Feels Safe At This Time caffeine: No Dental Care, Regularly: No Physical Activity Frequency: Does not Exercise Seatbelt Use: always Do you think of yourself as: straight/heterosexual Assistive Devices: None Review of Systems Review of Systems: Mild distress and fatigue no headache, no visual changes no speech or swallowing issues no chest pain, pressure or palpitations no shortness of breath, cough or wheezes no abdominal pain, nausea or vomiting, diarrhea or constipation no dysuria, hematuria or frequency Right shoulder in sling Hemovac drain in place no back pain, CVA tenderness or radicular pain no bruising, bleeding or rashes no focal signs of weakness or numbness or altered sensation no complaints of anxiety or depression.. Physical Exam Physical Exam: The patient appeared well nourished and normally developed. Vital signs as documented. Head exam is normocephalic atraumatic Neck is without JVD, thyromegaly, or carotid bruits. Lungs are clear to auscultation, no focal loss of breath sounds Cardiac exam, Rhythm is regular.. No murmurs, rubs or gallops. Abdominal exam reveals normal bowel sounds, soft non tender, no masses Right arm is with good distal strength and sensation limited mobility due to recent surgery Neurologic exam is alert and oriented, no focal loss of strength or sensation Psychologically is without concerns for anxiety or depression.. Results & Data Results & Data ([facility]) Vital Signs (Past 12 Hours) Vital Signs Temp Pulse Pulse Resp BP Pulse Ox O2 Del Method 04/17/22 13:42 98.2 F 65 65 16 111/61 92 04/17/22 07:22 98.2 F 65 16 111/61 92 Room Air PG Care Time/CCT Total # of Minutes Spent Total Time Spent with Patient: Total time spent is greater than 50% in coordination of care (as documented) at patient's floor/unit and/or counseling patient: Coding Level of Care Code 48336 Inpt Consult Level 1 Diagnoses Rotator cuff arthropathy of right shoulder M12.811 Hypercholesterolemia E78.00 CAD in [place] artery I25.10
--- NOTE | 2022-04-19 08:50 | Discharge Summary ---
Date of Service April 19, 2022 Admission HPI Per Admitting Provider 82 year old male with PMHx significant for CAD, GERD, HTN, high cholesterol who presents with ongoing right shoulder pain. Patient underwent rotator cuff repair last year and was found to have persistent pain and weakness. MRI confirmed failure of repair with massive retraction. Discussed with patient that this would not be amenable to repair and would require arthroplasty. He has faied conservative measures including injection and therapy. Patient denies headaches, sweats, fevers, chills, double vision, blurred vision, cough, sore throat, dysphagia, chest pain, sob, wheezing, n/v/d/c, numbness, tingling, fatigue, urinary symptoms, mood disorders. ROS positive for right shoulder pain and stiffness. Admission Exam Per Admitting Provider Constitutional: well developed and well nourished; no acute distress Eyes: PERRL, conjunctivae normal, anicteric sclerae ENMT: external ear and nose normal, oropharynx normal Neck: trachea midline, no thyromegaly Respiratory: normal respiratory effort, lungs clear to auscultation Cardiovascular: RRR, no murmur, no edema Musculoskeletal: Right shoulder: Tenderness anterolateral acromion. Crepitus with ROM. FF to 120, abduction to 150, ER to 45 degrees. Weakness with strength testing, 3/5 abduction, 4+/5 ER and IR. Skin: no rashes, warm and dry Neurologic: patellar DTR's 2+ bilat, sensation intact Psychiatric: A+Ox3, euthymic affect Principal Diagnosis right shoulder rotator cuff arthropathy Discharge Exam Right shoulder: Sling in place, dressing is clean, dry, intact. Fingers are mobile with good data transcriber strength. Distally neurovascular status and sensation intact. Constitutional WD/WN, vitals as above Discharge Data Allergies Allergy/AdvReac Type Severity Reaction Status Date / Time No Known Allergies Verified 04/16/22 06:47 Consultations 04/11/22 14:36 Consult Hospitalist Routine Procedures Performed Operation Date: 04/16/22 09:25 Actual Procedures p Right Reversed Total Shoulder Arthroplasty--Uncemented(Right) - Omer Gaona MD Ordered Studies 04/16/22 05:00 US - OR guided needle placemen Routine Hospital Course (1) Rotator cuff arthropathy of right shoulder: Postop day #1 right reverse total shoulder arthroplasty -PT/OT: No formal therapy for 6 weeks. May do elbow/wrist/hand motion, shrugs, pendulums -Pain management as written -DVT prophylaxis: SCDs, aspirin 81 mg daily -A.m. labs are pending. We will hold lisinopril and hydrochlorothiazide this morning pending kidney function as well as his pressures have been a little soft this morning. -Discharge plan: Plan on discharge home, possibly later today. We will recheck patient later this morning or early afternoon for possible discharge home. Lab Results 04/16/22 04/17/22 04/17/22 Range/Units 06:48 08:32 08:32 WBC 11.09 H (4.8-10.8) K/ul RBC 4.57 L (4.63-6.08) M/uL Hgb 12.6 L (14.0-18.0) g/dl Hct 38.2 L (40.1-51.0) % MCV 83.6 (80.0-100.0) fL MCH 27.6 (25.0-34.0) pg MCHC 33.0 (32.0-36.0) g/dL RDW Std Deviation 45.1 (36.4-46.3) fL RDW Coeff of Leni 14.9 H (11.5-14.5) % Plt Count 141 (130-400) K/uL MPV 9.3 L (9.4-12.4) fL Immature Gran % (Auto) 0.5 % Neut % (Auto) 86.6 % Lymph % (Auto) 6.2 % [place] % (Auto) 6.6 % Eos % (Auto) 0.0 % Baso % (Auto) 0.1 % Neut # (Auto) 9.60 H (1.4-6.5) K/uL Lymph # (Auto) 0.69 L (1.2-3.4) K/uL [place] # (Auto) 0.73 (0.24-0.82) K/uL Eos # (Auto) 0.00 (0-0.50) K/uL Baso # (Auto) 0.01 (0-0.2) K/uL Immature Gran # (Auto) 0.06 H (0.00-0.02) K/uL Sodium 140 (136-145) mmol/L Potassium 4.1 (3.5-5.1) mmol/L Chloride 106 (98-107) mmol/L Carbon Dioxide 27 (21-32) mmol/L Anion Gap 7 (3-11) BUN 27 H (6-23) mg/dl Creatinine 1.19 (0.6-1.4) mg/dl Est Cr Clr Drug Dosing 46.3 ml/min Est GFR ( Amer) 65.5 ml/min Est GFR (Non-Af Amer) 56.5 ml/min BUN/Creatinine Ratio 22.7 H (10-20) Glucose 145 H (70-99(Fasting)) mg/dl Calcium 8.3 L (8.5-10.1) mg/dl SARS-CoV-2, RNA, NAAT NEGATIVE (NEGATIVE) Total Time Total Time Spent Total Time Spent (In Minutes): 20 Discharge Plan Discharge Items Patient Disposition: Home - Self-Care Reason For Visit: Right Shoulder Rotator Cuff Arthropathy Discharge Diagnosis: Right shoulder rotator cuff arthropathy Activity: Per Instructions section Non-emergency contact: Surgeon Call non-emergency contact if: you have any medication questions, your pain is not controlled, your pain is concerning for you, you have a fever, your temperature is above 101, your wound has increased redness and your wound has increased drainage Follow-up/Referrals: Jairo Love MD [Primary Care Provider] - Diet: Regular Addtl Attending Provider Instructions: ACTIVITY RECOMMENDATIONS: SELF CARE INSTRUCTIONS AFTER TOTAL SHOULDER ARTHROPLASTY REVERSE A. You may do daily exercises as taught in physical therapy while in hospital. No lifting with the operative arm. B. You are to wear your sling/immobilizer at all times EXCEPT when performing your daily exercises and for hygiene purposes. C. You may perform dry, daily dressing changes. Please keep your incision covered. You may shower 48 hours after surgery. Do not apply soap or any ointment/lotions directly over incision. Do not soak incision in bath tub/swimming pool. D. You may use ice as needed to operative shoulder. SPECIAL CARE INSTRUCTIONS: VERY IMPORTANT TO READ AND REVIEW A. There are a few signs you need to watch for after you are home. Call [facility] at [phone] if you experience any of the followin. Increased severe shoulder pain. Some pain is expected especially when you exercise. 2. Increased swelling in you shoulder or arm; pain or swelling in either upper extremity. 3. Any fluid drainage from the incision. 4. Shortness of breath or chest pain. B. Please call [facility] at [phone] if you have any questions or concerns about your operation or recovery. C. Call your physician if: 1. Temperature is greater than 101 degrees (F). 2. Pain is not relieved by prescribed pain medications. 3. Increase drainage or redness from incision. 4. Unanswered questions or concerns. FOLLOW UP VISIT: Please call [facility] at [phone] to schedule a follow up appointment with Dr. Gaona or his PA in 12-14 days from your surgery date. Pending Studies at Discharge: No Stand-Alone Forms: [facility], Smoking Cessation Medications and DC Order Prescriptions: New acetaminophen [Tylenol Extra Strength] 500 mg Tablet 1,000 mg PO Q8 Qty: 60 0RF oxycodone 5 mg Tablet 5 - 10 mg PO .Q4h-6h MDD 6 PRN (Reason: pain) Qty: 30 0RF Rx Instructions: Ongoing therapy, Dr. Gaona supervising cefadroxil 500 mg capsule 500 mg PO BID Qty: 14 0RF Continued metoprolol succinate 50 mg tablet extended release 24 hr 25 mg PO .COMPLEX Qty: 180 0RF Rx Instructions: 0.5 tablet in the am and 0.5 tablet in the evening if needed based upon BP. omeprazole 20 mg capsule,delayed release(DR/EC) 20 mg PO DAILY PRN (Reason: Heartburn) Qty: 30 5RF hydrochlorothiazide 25 mg tablet 25 mg PO QAM Qty: 90 3RF atorvastatin 80 mg tablet 80 mg PO PM Qty: 100 3RF lisinopril 5 mg tablet 5 mg PO QAM Qty: 90 3RF hydrocortisone 2.5 % cream 1 applic topical TID PRN (Reason: skin irritation) Qty: 30 5RF multivitamin Tablet 1 tab PO QAM aspirin 81 mg Tablet,Delayed Release (Dr/Ec) 81 mg PO PM potassium chloride 10 mEq tablet extended release 10 meq PO UD Label Comments: only taking 3 times per week Discontinued acetaminophen [Tylenol] 325 mg Capsule 325 mg PO Q6H PRN (Reason: Pain) Discharge Orders: Discharge Order (Routine); Ordered 04/17/22 Ordered By: Oliver Padilla Admission Data Admit Date/Time: 04/16/22 11:48 Attending Provider: Omer Gaona Admit Provider: Omer Goana Primary Care Provider: Jairo Love Other Providers: Andres Gutierres Thomas E. Other Interventions: Discharge Summary Assessment (RN) Last Done: 04/17/22 13:42
== END 2022-04-17 13:57 | disposition home or self-care (01) ==
LOC: ASU 06:32 → INTOOBSV 11:48 → PACUINP 11:48 → 3N 14:17

== ENCOUNTER 2022-11-28 07:20 | Observation (INO) ==
--- NOTE | 2022-10-26 16:17 | PAT Medication Instructions ---
Medication Instructions Date of Service October 26, 2022 Home Medications Medication Instructions Recorded hydrochlorothiazide 25 mg tablet 25 mg PO QAM #90 tabs 10/30/21 atorvastatin 80 mg tablet 80 mg PO PM #100 tabs 04/04/22 lisinopril 5 mg tablet 5 mg PO QAM #90 tabs 04/30/22 omeprazole 20 mg capsule,delayed 20 mg PO DAILY PRN Heartburn #90 05/11/22 release caps aspirin 81 mg tablet,delayed release 81 mg PO PM multivitamin 1 tab PO QAM hydrochlorothiazide 25 mg tablet 25 mg PO QAM atorvastatin 80 mg tablet 80 mg PO PM lisinopril 5 mg tablet 5 mg PO QAM omeprazole 20 mg capsule,delayed release 20 mg PO DAILY PRN Heartburn acetaminophen 500 mg tablet (Tylenol Extra Strength) 1,000 mg PO Q8 PRN Pain ferrous sulfate 325 mg (65 mg iron) tablet 325 mg PO QAM metoprolol succinate 25 mg tablet,extended release 24 hr 25 mg PO QAM potassium chloride 10 mEq tablet,extended release 10 meq PO QAM DO NOT take the morning of surgery multivitamin 1 tab PO QAM hydrochlorothiazide 25 mg tablet 25 mg PO QAM lisinopril 5 mg tablet 5 mg PO QAM ferrous sulfate 325 mg (65 mg iron) tablet 325 mg PO QAM potassium chloride 10 mEq tablet,extended release 10 meq PO QAM Take morning of surgery With a small sip of water, OTHERWISE NOTHING TO EAT OR DRINK AFTER MIDNIGHT: omeprazole 20 mg capsule,delayed release 20 mg PO DAILY PRN Heartburn (if needed) acetaminophen 500 mg tablet (Tylenol Extra Strength) 1,000 mg PO Q8 PRN Pain (if needed) metoprolol succinate 25 mg tablet,extended release 24 hr 25 mg PO QAM Take evening before surgery aspirin 81 mg tablet,delayed release 81 mg PO PM (unless surgeon directed otherwise) atorvastatin 80 mg tablet 80 mg PO PM omeprazole 20 mg capsule,delayed release 20 mg PO DAILY PRN Heartburn (if needed) acetaminophen 500 mg tablet (Tylenol Extra Strength) 1,000 mg PO Q8 PRN Pain (if needed) Other Notes If you have any questions please call us at [phone] or [phone] or [phone] or [phone]
--- NOTE | 2022-11-02 11:33 | Anesthesiology Consultation ---
Date of Service November 02, 2022 Assessment & Plan (1) Encounter for pre-operative examination: - COVID screening: Per assessment on 11/02: No known COVID-19 positive contacts or current COVID-19 related symptoms. Travel screen negative. Patient vaccinated. At surgeon discretion if preop Covid testing being done. - S/P Right reverse TSA (04/16/22): Grade 1 view, MAC#4, ETT 7.5 + PNB at [facility]. No issues noted per post-op anesthesia progress note. - Outpatient joint assessment: Pt currently scheduled for inpatient pathway. If surgeon requests review for outpatient joint pathway, patient is not recommended candidate for outpatient joint program from anesthesia standpoint. - Cardiology office visit (06/05/22): "CAD s/p CABG and PCI: No angina or heart failure symptoms. SVG to circumflex occluded in the past and underwent LMCA PCI into the circumflex in 2011. BERKOWITZ to LAD was patent. Continue aspirin 81 mg daily indefinitely. Continue high-intensity statin therapy and beta-thuy as tolerated... Hypertension: Blood pressure remains well controlled. Has been taking metoprolol 25 mg once daily in the morning. Therefore will change his prescription to match what he has been taking for at least 1 year. Had had occasional symptomatic hypotension in the past when taking 50 mg of metoprolol succinate daily.. Dyslipidemia: LDL is excellent. Continue high-intensity statin therapy. Labs followed regularly by Dr. Love. Regular cardiovascular exercise as tolerated with his orthopedic issues.. Tricuspid regurgitation: Moderate to severe in 2009, however not well visualized on 2021 echo. Asymptomatic. May repeat echo in the future.. Disposition: He would like to follow-up in 1 year or sooner for any other questions or concerns." - Patient acceptable risk for surgery pending surgeon-ordered PCP preop evaluation ([facility], appt 11/12). Chart Review Chart Review: Patient seen in Pre Admission Testing Teaching & Discussion Pre-Anesthesia Teaching/Discussion Notes: Instructed NPO after midnight before surgery,except medications with 15 cc of water. Medication instructions provided according to the PAT guidelines. History Surgery Operation Date: 11/28/22 07:15 Proposed Procedures p Right Total Knee Arthroplasty - Omer Gaona MD Height/Weight Height: 5 ft 8 in Weight: 71.7 kg Allergies Allergy/AdvReac Type Severity Reaction Status Date / Time No Known Allergies Allergy Verified 10/26/22 15:12 Medications Home Medications Medication Instructions Recorded Confirmed Last Taken aspirin 81 mg tablet,delayed 81 mg PO PM 02/16/19 10/26/22 04/15/22 18:00 release multivitamin 1 tab PO QAM 02/16/19 10/26/22 04/15/22 06:00 atorvastatin 80 mg tablet 80 mg PO PM #100 tabs 04/04/22 10/26/22 04/15/22 18:00 lisinopril 5 mg tablet 5 mg PO QAM #90 tabs 04/30/22 10/26/22 Unknown omeprazole 20 mg capsule,delayed 20 mg PO DAILY PRN Heartburn #90 05/11/22 0 10/26/22 Unknown release caps acetaminophen 500 mg tablet 1,000 mg PO Q8 PRN Pain 10/26/22 10/26/22 Unknown (Tylenol Extra Strength) ferrous sulfate 325 mg (65 mg 325 mg PO QAM 10/26/22 10/26/22 Unknown iron) tablet metoprolol succinate 25 mg 25 mg PO QAM 10/26/22 10/26/22 Unknown tablet,extended release 24 hr potassium chloride 10 mEq 10 meq PO QAM 10/26/22 10/26/22 Unknown tablet,extended release hydrochlorothiazide 25 mg tablet 25 mg PO QAM #90 tabs 10/29/22 Unknown Past Medical History Medical History BCC (basal cell carcinoma) hx CAD in [place] artery s/p CABG (2008), stent (2011) Diverticular disease GERD (gastroesophageal reflux disease) mild Hearing deficit BL MAXWELL History of sciatica Hyperlipidemia Hypertension Iron deficiency anemia Osteoarthritis Right lumbar radiculopathy Right shoulder pain Tricuspid regurgitation follow [facility] Exercise / Class Metabolic Activity II 4-5 Yardwork/Stairs/Walk up hill Past Family History Family History Father Cirrhosis Mother CHF (congestive heart failure) Heart disease Hypertension Sister Breast cancer Cancer Brother Cancer Other No family history of adverse response to anesthesia Past Surgical History Surgical History History of appendectomy History of cardiac cath 2008 > CABG 2011 > stent x1 History of cholecystectomy (~08/2022) [facility] [place] History of colonoscopy History of coronary artery bypass graft 2009 History of left cataract surgery History of prostate biopsy benign History of tooth extraction Hx of right cataract extraction S/P coronary artery stent placement 2011 S/P rotator cuff surgery right Status post Mohs surgery nose Status post reverse arthroplasty of right shoulder Right reverse TSA (04/16/22): Grade 1 view, MAC#4, ETT 7.5 + PNB at [facility]. No issues noted per post-op anesthesia progress note. Past Anesthesia History No Hx of Anesthesia Complications and No Family Hx of Anesthesia Complications History of PONV No Hx of PONV and No Hx of Motion Sickness Social History Smoking Status: Former smoker tobacco type: cigarettes Do You Dip or Chew Tobacco: No Smoking End Date: Quit 1966 Hx Alcohol Use: Yes (Occasional) Alcohol type: wine alcohol intake frequency: holidays/special occasions only Hx Substance Use: No substance use type: does not use Review of Systems Patient denies chest pain, shortness of breath, dyspnea on exertion, fever, chills, cough, wheezing, palpitations. Physical Exam Vital Signs VITALS BP 126/66 P 65 TEMP 97.9 SP02 97%RA RESP 16 PHYSICAL Full cervical extension range of motion. Full TMJ range of motion. TMD 3 finger breaths Mallampati Score 4 (small oral opening) Dentition: full dentures upper/lower Lungs: clear throughout to auscultation Cardiac: regular rate and rhythm, no murmurs noted Spine: normal Carotid arteries: negative bruit Extremities: no edema Lab Results Anesthesia Preop Results Results Anesthesia Widget: WBC 4.06 K/ul (4.8-10.8) L 11/02/22 Hgb 14.4 g/dl (14.0-18.0) 11/02/22 Hct 42.1 % (42.0-52.0) 11/02/22 Plt 172 K/uL (130-400) 11/02/22 Na 141 mmol/L (136-145) 11/02/22 K 4.2 mmol/L (3.5-5.1) 11/02/22 Cl 102 mmol/L (98-107) 11/02/22 CO2 33 mmol/L (21-32) H 11/02/22 BUN 21 mg/dl (6-23) 11/02/22 Creat 1.23 mg/dl (0.6-1.4) 11/02/22 Glucose Level 179 mg/dl (70-99(Fasting)) H 11/02/22 PT 10.9 Seconds (9.0-12.0) 11/02/22 PTT 25.6 Seconds (21.0-31.0) 11/02/22 INR 1.0 (0.9-1.1) 11/02/22 HA1c 5.9 % (4.5-5.6) H 11/02/22 Urine Color Yellow 11/02/22 Urine Appearance Clear (Clear) 11/02/22 Urine pH 5.5 (4.5-7.5) 11/02/22 Urine Specific [place] 1.015 (1.000-1.030) 11/02/22 Urine Protein Negative (Negative) 11/02/22 Urine Glucose (UA) Negative (Negative) 11/02/22 Urine Ketones Negative (Negative) 11/02/22 Urine Blood Negative (Negative) 11/02/22 Urine Nitrite Negative (Negative) 11/02/22 Urine Bilirubin Negative (Negative) 11/02/22 Urine Urobilinogen Negative (Negative) 11/02/22 Urine Leukocyte Esterase Negative (Negative) 11/02/22 Blood Type A Positive 11/02/22 Antibody Screen NEGATIVE 11/02/22 Testing Electrocardiogram Date: 11/02/22 NSR at 69bpm. Chest X-Ray Date: 09/13/22 No focal consolidation. No acute cardiopulmonary disease seen. Median sternotomy wires and mediastinal clips compatible with prior CABG. Echocardiogram Date: 06/01/22 EF 60 to 65%. No regional motion abnormality. No LVH. Mild RV DD. Mild RAD. Tricuspid regurgitation is not well visualized. There is no tricuspid stenosis. AV sclerosis. COVID-19 Risk Screen Screening Information COVID-19 Screen Date: 11/02/22 Exposure 21 Days Family/Household +COVID Last 21 Days: No Exposure 10 Days Any COVID Exposure Last 10 Days: No Symptoms Last 10 Days Experienced COVID Sx Last 10 Days: No + COVID 0-90 Days COVID + in Last 0-90 Days: No
--- NOTE | 2022-11-27 09:39 | History & Physical Report ---
Date of Service November 27, 2022 Assessment & Plan (1) Primary osteoarthritis of right knee: Plan: Treatment options discussed with patient. He has failed conservative measures. Risks, benefits and alternatives to surgery including but not limited to infection, DVT, pain, stiffness, need for revision surgery, damage to blood vessels, damage to nerves, PE, , were discussed with the patient and they wish to proceed. Plan on right total knee arthroplasty scheduled for [facility] on 11/28/[address] Gaona. Plan on outpatient PT post op. Plan on aspirin 81mg BID for 1 mo post op for DVT prophylaxis. All questions answered. F/u post op. History of Present Illness Chief Complaint: Right knee pain Primary Care Provider: Jairo Love MD 82yo male with PMHx significant for CAD, HTN, high cholesterol, tricuspid regurg who presents with ongoing right knee pain. Pain is interfering with his daily activity. He has failed conservative measures and would like to proceed with right knee replacement. Patient denies headaches, sweats, fevers, chills, double vision, blurred vision, cough, sore throat, dysphagia, chest pain, sob, wheezing, n/v/d/c, numbness, tingling, fatigue, urinary symptoms, mood disorders. ROS positive for right knee pain and stiffness. Allergies Allergy/AdvReac Type Severity Reaction Status Date / Time No Known Allergies Allergy Verified 11/12/22 12:56 Home Medications Medication Instructions Recorded Confirmed Type aspirin 81 mg tablet,delayed 81 mg PO PM 02/16/19 11/12/22 History release multivitamin 1 tab PO QAM 02/16/19 11/12/22 History atorvastatin 80 mg tablet 80 mg PO PM #100 tabs 04/04/22 11/12/22 Rx lisinopril 5 mg tablet 5 mg PO QAM #90 tabs 04/30/22 11/12/22 Rx omeprazole 20 mg capsule,delayed 20 mg PO DAILY PRN Heartburn #90 05/11/22 11/12/22 Rx release caps acetaminophen 500 mg tablet 1,000 mg PO Q8 PRN Pain 10/26/22 11/12/22 History (Tylenol Extra Strength) ferrous sulfate 325 mg (65 mg 325 mg PO QAM 10/26/22 11/12/22 History iron) tablet potassium chloride 10 mEq 10 meq PO QAM 10/26/22 11/12/22 History tablet,extended release hydrochlorothiazide 25 mg tablet 25 mg PO QAM #90 tabs 10/29/22 11/12/22 Rx metoprolol succinate 25 mg 25 mg PO QAM #90 tabs 11/12/22 11/12/22 Rx tablet,extended release 24 hr Past Med/Surg History Medical History (Updated 11/27/22 @ 09:41 by Darwin Reynaga PA-C) BCC (basal cell carcinoma) hx CAD in [place] artery s/p CABG (2008), stent (2011) Diverticular disease GERD (gastroesophageal reflux disease) mild GERD (gastroesophageal reflux disease) Hearing deficit BL MAXWELL History of sciatica Hyperlipidemia Hypertension Iron deficiency anemia Osteoarthritis Right lumbar radiculopathy Right shoulder pain Tricuspid regurgitation follow [facility] Surgical History History of appendectomy History of cardiac cath 2008 > CABG 2011 > stent x1 History of cholecystectomy (~08/2022) [facility] [place] History of colonoscopy History of coronary artery bypass graft 2008 History of left cataract surgery History of prostate biopsy benign History of tooth extraction Hx of right cataract extraction S/P coronary artery stent placement 2011 S/P rotator cuff surgery right Status post Mohs surgery nose Status post reverse arthroplasty of right shoulder Right reverse TSA (04/16/22): Grade 1 view, MAC#4, ETT 7.5 + PNB at [facility]. No issues noted per post-op anesthesia progress note. Family History Father Cirrhosis Mother CHF (congestive heart failure) Heart disease Hypertension Sister Breast cancer Cancer Brother Cancer Other No family history of adverse response to anesthesia Social History Smoking Status: Former smoker Age Started Using Tobacco: 14; Age Quit Using Tobacco: 27; Second Hand Exposure: No; Hx Alcohol Use: Yes (Occasional) Alcohol type: wine Hx Substance Use: No Preferred Language: [place] Communication Ability: Effective Pension Agent Required: No Beliefs That Will Affect Care: None Current Living Situation: Alone current occupational status: retired Feels Safe at Home: Yes caffeine: No Dental Care, Regularly: No Physical Activity Frequency: Does not Exercise Seatbelt Use: always Do you think of yourself as: straight/heterosexual Assistive Devices: Denture - Upper, Denture - Lower, Glasses and Hearing Aid - Bilateral Review of Systems All systems reviewed & are unremarkable except as noted in HPI & below Physical Exam Constitutional: well developed and well nourished; no acute distress Eyes: PERRL, conjunctivae normal, anicteric sclerae ENMT: external ear and nose normal, oropharynx normal Neck: trachea midline, no thyromegaly Respiratory: normal respiratory effort, lungs clear to auscultation Cardiovascular: RRR, no murmur, no edema Musculoskeletal: Right knee: Mild effusion. Medial joint line tenderness. Moderate crepitation. ROM 0-130 degrees. Stable to valgus and varus stress. Skin: no rashes, warm and dry Neurologic: patellar DTR's 2+ bilat, sensation intact Psychiatric: A+Ox3, euthymic affect Results & Data ([facility]) Diagnostic Findings Right knee radiographs: end-stage osteoarthritis right knee, [id number] medial compartment. There is periarticular osteophyte formation. He has mild subluxation of the femur and tibia.
[~2022-11-28 07:20] MED LIST changes: -BUPIVACAINE 0.25% 30 ML VIAL ONE; -LR 15ML/HR IV SCH; +LR 500ML BOLUS, THEN 15ML/HR IV SCH; +ROPIVACAINE 0.5% 5 MG/ML 30 ML VIAL ONE; +ROPIVACAINE 0.5% HCL/PF 150 MG, BUPIVACAINE 0.75% MPF 20 ML, EPINEPHrine 30MG/30ML (OR ... INSTIL SCH; -ceFAZolin 1000MG 1,000 MG/7.5 ML SYR IV SCH; +ceFAZolin 2000MG 2,000 MG/15 ML SYR IV SCH
[2022-11-28] MEDS ORDERED: fentaNYL citrate 100 MCG/2 ML VIAL ONE (08:20)
[2022-11-28] MEDS ORDERED: PROPOFOL IV EMULSION 10 MG/ML 20 ML VIAL IV ONE (08:20)
[2022-11-28] MEDS ORDERED: MIDAZOLAM HCL 1 MG/ML 2ML VIAL ONE (08:20)
[2022-11-28] MEDS ORDERED: ONDANSETRON INJ 2 MG/ML 2 ML VIAL ONE (08:25)
[2022-11-28] MEDS ORDERED: fentaNYL citrate 100 MCG/2 ML VIAL IV PRN (08:49)
[2022-11-28] MEDS ORDERED: ePHEDrine sulfate 50 MG/ML AMP IV PRN (08:49)
[2022-11-28] MEDS ORDERED: ATROPINE SULFATE 0.1 MG/ML 10ML SYR IV PRN (08:49)
[2022-11-28] MEDS ORDERED: ONDANSETRON INJ 2 MG/ML 2 ML VIAL IV PRN ×2 (08:49→14:10)
--- NOTE | 2022-11-28 09:50 | History & Physical Bridge Note ---
Date of Service November 28, 2022 History & Physical Bridge Note I have examined the patient, reviewed the History & Physical and in the interval since the performance of the History & Physical I have noted the following changes of clinical significance: no changes noted
[2022-11-28] MEDS ORDERED: ORTHO JOINT ANESTHETIC ONE (10:01)
[2022-11-28] MEDS ORDERED: PHENYLEPHRINE HCL 10 MG/ML VIAL ONE (10:44)
--- NOTE | 2022-11-28 12:35 | Post Operative Brief Note ---
Immediate Post Op Note v1 Date of Surgery November 28, 2022 Pre & Post Diagnosis Operation Date: 11/28/22 09:55 Pre-Op Diagnosis: Right Knee Osteoarthritis Post-Op Diagnosis: Right Knee Osteoarthritis I identified the patient and participated in the time-out.: Yes Procedure Operation Date: 11/28/22 09:55 Actual Procedures p Right Total Knee Arthroplasty(Right), joanne and Acticoat superficial wound VAC- Omer Gaona MD Surgeon Omer Gaona MD Banjo Repairer Tay MANUEL Estimated Blood Loss 5 Findings Consistent with Post-Op Diagnosis Specimens Bone cuts Drains Hemovac Drain Anesthesia Type MAC Spinal Regional Complications none Disposition Disposition: Recovery Room Overlapping Procedure I was immediately available: during the entire case.
--- NOTE | 2022-11-28 12:43 | Operative Report ---
Post Operative Report Pre & Post Diagnosis Operation Date: 11/28/22 09:55 Pre-Op Diagnosis: Right Knee Osteoarthritis Post-Op Diagnosis: Right Knee Osteoarthritis I identified the patient and participated in the time-out.: Yes Procedure Operation Date: 11/28/22 09:55 Actual Procedures p Right Total Knee Arthroplasty(Right), ariane and Acticoat superficial wound VAC- Omer Gaona MD Surgeon Omer Gaona MD Salt Machine Operator Tay MANUEL Estimated Blood Loss 5 Findings Consistent with Post-Op Diagnosis Specimens Bone cuts Drains 2 Hemovac Anesthesia Type MAC Spinal Regional Complications none Disposition Disposition: Recovery Room Indications 82-year-old male with chronic progressive osteoarthritis in his right knee failed conservative management. Radiographs demonstrate he has varus knees [id number] medial compartment with some ridging and grade 3-4 osteoarthritis and patellofemoral joint as well. Description of Procedure Patient was taken to the operating room placed supine on the operating table and anesthetized under spinal MAC regional block anesthesia. Exam under anesthesia demonstrated 20 degree flexion contracture with flexion up to 130 degrees. A pneumatic tourniquet was placed about the thigh of the right lower extremity. The right lower extremity was prepped and draped in usual sterile fashion. The leg was elevated exsanguinated with an Esmarch bandage and the pneumatic tourniquet was raised to 275 mm mercury. An anterior incision was made across the right knee. The skin was incised longitudinally subcutaneous flaps were elevated and an incision was made through the medial retinaculum extending up into the mid third of the quadriceps tendon and extended down to the medial tibial tubercle. Intra-articular findings demonstrated eburnated mols-fq-ardi medial compartment with ridging on the femoral condyle and grade III chondromalacia of the lateral femoral condyle and grade 4 lateral facet patella with exposed bone.. The knee was exposed by excising the infrapatellar fat pad, excising the meniscal remnants and anterior cruciate ligament. Any inflamed synovial tissue was resected. The fat pad over the anterior femur was resected for placement of the component in that area. The lateral synovial bands were release. The femur was exposed. The custom femoral cutting block was pinned in position. The distal femoral cutting block was applied. A +2 adjustment was made due to the flexion contracture on the femur cut. The distal femoral cut was made with the oscillating saw. The size 10, 4-in-1 cutting block was placed. The anterior and posterior chamfer cuts were made. The knee was extended and a subperiosteal peel lateral release was performed around the patella. The patella width was measured and width was reproduced using freehand cut technique. The 32 x 8.5 millimeter symmetrical patella was used. 3 drill holes are made for the pegs. The tibia was exposed. A custom tibial cutting block was positioned and drill holes were made for the cutting guide. Cutting guide was placed and the proximal cut was made with the oscillating saw. All osteophytes were resected. The lamina tree tapping laborer was used to assess ligamentous balance and the ligaments were balanced in extension and flexion. No releases were required. The tibia was reexposed and measured for a size F tibial component. This was externally rotated in line with the tibial tubercle and the fixation pins were drilled. The proximal tibia was fashioned with the drill and punch. The size 10 CR femoral trial was inserted. The trial MC inserts were used. The 10 mm insert gave balanced ligaments through full range of motion. The patella tracked centrally. the trials were removed. The orthomix anesthetic cocktail was injected per protocol. The knee was then copiously irrigated with pulsatile lavage saline solution. The final components were cemented with Refobacin bone cement. The final components were Dave persona size 10 standard CR right femoral component, F right tibial component, right 10 MC tibial polyethylene and a 32 x 8.5 mm symmetrical polyethylene patella. After the cement cured with the knee in full extension the Betadine soak was used per protocol. The knee joint was copiously irrigated with pulsatile lavage saline solution . 2 drains were brought out laterally and connected to a Hemovac. The quadriceps tendon and medial retinaculum were closed with interrupted [id number] #1 Vicryl sutures. The knee was taken through a full range of motion which was 0 through 140 degrees and the repair was secure. The subcutaneous tissues were closed with 2-0 Vicryl sutures and skin was closed with brianna.A Ariane and Acticoat superficial wound VAC was applied and the patient tolerated the procedure well. Tay MANUEL my physician personal assistant participated as retail store assistant and was an integral part in all aspects of the procedure, he assisted in soft tissue retraction, instrument management ,leg positioning, the closure, application of the superficial wound VAC and will participate in the postoperative care of the patient. I attest to the content of the Intraoperative Record and any orders documented therein. Any exceptions are noted below.
--- NOTE | 2022-11-28 13:13 | XRay Report ---
XR knee RT 1 or 2V routine HISTORY: 82 years-old Male Surgical Post Op right knee total joint arthroplasty COMPARISON: None TECHNIQUE: 2 views of the right knee FINDINGS: Total joint arthroplasty with patellar resurfacing. Anterior midline skin brianna are noted along wit h expected postoperative soft tissue swelling with deep tissue air. No acute fracture or malalignment . IMPRESSION: Total joint arthroplasty with expected postoperative changes. ACT 112: Negative or not required by law. The above report was generated using voice recognition software. It may contain grammatical, syntax o r spelling errors. Electronically signed by: Paco Salcido M.D. 11/28/2022 1:11 PM
[2022-11-28] MEDS ORDERED: MAGNESIUM HYDROXIDE SUSP 30 ML UDC PO PRN (14:10)
[2022-11-28] MEDS ORDERED: bisacodyL 10 MG SUPP PR PRN (14:10)
[2022-11-28] MEDS ORDERED: HYDROmorphone INJ 0.5 MG/0.5 ML SYR IV PRN (14:10)
[2022-11-28] MEDS ORDERED: oxyCODONE HCL IR 5 MG TAB (IMMEDIATE RELEASE) PO PRN (14:10)
[2022-11-28] MEDS ORDERED: METOCLOPRAMIDE HCL INJ 5 MG/ML 2 ML VIAL IV PRN (14:10)
[2022-11-28] MEDS ORDERED: TAMSULOSIN HCL 0.4 MG CAP PO PRN (14:10)
[2022-11-28] MEDS ORDERED: NALOXONE HCL 0.4 MG/1 ML VIAL/CARP IV PRN (14:10)
--- NOTE | 2022-11-28 14:12 | Anesthesiology Progress Note ---
Date of Service November 28, 2022 Anesthesia Post Procedure Vital Signs Vital Signs: Temp Pulse Pulse Resp BP Pulse Ox O2 Del Method 11/28/22 12:50 69 16 104/61 95 Nasal Cannula 11/28/22 13:30 60 12 102/61 100 Nasal Cannula 11/28/22 13:20 61 12 114/61 99 Nasal Cannula 11/28/22 13:10 64 14 110/63 99 Nasal Cannula 11/28/22 13:00 68 18 108/64 99 Nasal Cannula 11/28/22 12:40 71 13 100/57 L 95 Room Air 11/28/22 12:30 97.0 F L 76 12 109/58 L 96 Room Air 11/28/22 08:38 98.1 F 68 18 126/75 97 Room Air O2 Flow Rate 11/28/22 12:50 2 11/28/22 13:30 2 11/28/22 13:20 2 11/28/22 13:10 2 11/28/22 13:00 2 11/28/22 12:40 11/28/22 12:30 11/28/22 08:38 Transfer of Care Handoff Completed per policy Notes Mental Status: alert / awake / arousable and participated in evaluation Patient Amnestic to Procedure: Yes Nausea / Vomiting: adequately controlled Pain: adequately controlled Airway Patency, RR, SpO2: stable & adequate BP & HR: stable & adequate Hydration State: stable & adequate Neuraxial Anesthesia: was administered and sensory block is resolving Anesthetic Complications: no major complications apparent and Pt Satisfied with anesthetic care
[2022-11-28] MEDS ORDERED: PANTOprazole 40 MG TAB PO PRN (14:15)
[2022-11-28] MEDS: SODIUM CHLORIDE 0.9% 1000ML 1,000 ML IV SCH ×2 (14:22→23:25)
[2022-11-28] MEDS: ACETAMINOPHEN 500 MG TAB PO SCH ×2 (14:26→22:37)
--- NOTE | 2022-11-28 14:52 | Hospitalist Consultation ---
Date of Consultation November 28, 2022 Assessment & Plan (1) Primary osteoarthritis of right knee: - S/P total right knee arthroplasty (2) GERD (gastroesophageal reflux disease): - Protonix 40mg daily (3) Benign essential hypertension: - Continue Lisinopril, Metoprolol, HCTZ - Currently BP 104/60 (4) Hypercholesterolemia: - Continue Atorvastatin Supervising Physician Co-Signing Physician Notes Patient seen and examined, chart reviewed, case discussed with Justina Carrero PA-C and I agree with the assessment and plan as above except as otherwise noted Labs and images reviewed Seen at bedside. Patient feels well, no complaints. He has no pain so far. Did note increased drainage through his wound VAC with exercise, otherwise no concerns. Heart rate is regular. Sensation is intact in hands and feet. Heart rate is regular. Doing well, agree with recommendations above. Given history of GERD increase PPI to twice daily while on DVT prophylaxis. CBC check in the morning given increased drain output with exam. History of Present Illness Reason for Consultation: post op medical management Requesting Physician: Dr Gaona Attending Physician: Omer Gaona MD History of Present Illness Billy Mak is a 82 year old male with a past medical history of CAD, HTN, Hyperlipidemia, OA, anemia, GERD who was admitted for an elective right knee replacement. Patient underwent a total right knee arthroplasty today. Surgery went well with no complications. EBL 5ml Patient has a wound vac and drain in place. A consult was placed for medical management. Allergies Allergy/AdvReac Type Severity Reaction Status Date / Time No Known Allergies Allergy Verified 11/28/22 08:33 Home Medications Medication Instructions Recorded Confirmed Type aspirin 81 mg tablet,delayed 81 mg PO PM 02/16/19 11/28/22 History release multivitamin 1 tab PO QAM 02/16/19 11/28/22 History atorvastatin 80 mg tablet 80 mg PO PM #100 tabs 04/04/22 11/28/22 Rx lisinopril 5 mg tablet 5 mg PO QAM #90 tabs 04/30/22 11/28/22 Rx omeprazole 20 mg capsule,delayed 20 mg PO DAILY PRN Heartburn #90 05/11/22 11/28/22 Rx release caps acetaminophen 500 mg tablet 1,000 mg PO Q8 PRN Pain 10/26/22 11/28/22 History (Tylenol Extra Strength) ferrous sulfate 325 mg (65 mg 325 mg PO QAM 10/26/22 11/28/22 History iron) tablet potassium chloride 10 mEq 10 meq PO QAM 10/26/22 11/28/22 History tablet,extended release hydrochlorothiazide 25 mg tablet 25 mg PO QAM #90 tabs 10/29/22 11/28/22 Rx metoprolol succinate 25 mg 25 mg PO QAM #90 tabs 11/12/22 11/28/22 Rx tablet,extended release 24 hr Patient History Medical History BCC (basal cell carcinoma) hx CAD in [place] artery s/p CABG (2008), stent (2011) Diverticular disease GERD (gastroesophageal reflux disease) mild GERD (gastroesophageal reflux disease) Hearing deficit [facility] History of sciatica Hyperlipidemia Hypertension Iron deficiency anemia Osteoarthritis Right lumbar radiculopathy Right shoulder pain Tricuspid regurgitation follow [facility] History History of appendectomy History of cardiac cath 2008 > CABG 2011 > stent x1 History of cholecystectomy (~08/2022) [facility] History of colonoscopy History of coronary artery bypass graft 2008 History of left cataract surgery History of prostate biopsy benign History of tooth extraction Hx of right cataract extraction S/P coronary artery stent placement 2011 S/P rotator cuff surgery right Status post Mohs surgery nose Status post reverse arthroplasty of right shoulder Right reverse TSA (04/16/22): Grade 1 view, MAC#4, ETT 7.5 + PNB at [facility]. No issues noted per post-op anesthesia progress note. Family History Father Cirrhosis Mother CHF (congestive heart failure) Heart disease Hypertension Sister Breast cancer Cancer Brother Cancer Other No family history of adverse response to anesthesia Social History Smoking Status: Former smoker Age Started Using Tobacco: 14; Age Quit Using Tobacco: 27; Smoking End Date: Quit 1966; Second Hand Exposure: No; Do You Dip or Chew Tobacco: No; Tobacco Cessation Education Requested by Patient: No Hx Alcohol Use: Yes (Occasional) Alcohol type: wine Hx Substance Use: No Preferred Language: Latvian Communication Ability: Effective Case Reviewer Required: No Beliefs That Will Affect Care: None Current Living Situation: Alone current occupational status: retired Other Information That Helps Us Care for You: No Feels Safe at Home: Yes Safety Concerns: Feels Safe At This Time caffeine: No Dental Care, Regularly: No Physical Activity Frequency: Does not Exercise Seatbelt Use: always Do you think of yourself as: straight/heterosexual Assistive Devices: Denture - Upper, Denture - Lower, Glasses and Hearing Aid - Bilateral Review of Systems Review of Systems: All ROS negative unless stated + above Physical Exam Constitutional: WD/WN, vitals as above ENMT: external ear and nose normal, oropharynx normal Neck: trachea midline, no thyromegaly Respiratory: normal respiratory effort, lungs clear to auscultation Cardiovascular: RRR, no murmur, no edema Gastrointestinal (Abdomen): normal bowel sounds, soft, nontender, no hepatosplenomegaly Skin: no rashes, warm and dry Neurologic: PERRL, EOMI, accommodation nl, no face palsy, no dysarthria Psychiatric: A+Ox3, euthymic affect Results & Data Results & Data ([facility]) Vital Signs (Past 12 Hours) Vital Signs Temp Pulse Pulse Pulse Resp BP Pulse Ox 11/28/22 14:16 95 11/28/22 14:00 36.4 C L 64 20 100/67 93 11/28/22 12:50 69 16 104/61 95 11/28/22 13:30 60 12 102/61 100 11/28/22 13:20 61 12 114/61 99 11/28/22 13:10 64 14 110/63 99 11/28/22 13:00 68 18 108/64 99 11/28/22 12:40 71 13 100/57 L 95 11/28/22 12:30 36.1 C L 76 12 109/58 L 96 11/28/22 08:38 36.7 C 68 18 126/75 97 O2 Del Method O2 Flow Rate 11/28/22 14:16 Nasal Cannula 1 11/28/22 14:00 Room Air 11/28/22 12:50 Nasal Cannula 2 11/28/22 13:30 Nasal Cannula 2 11/28/22 13:20 Nasal Cannula 2 11/28/22 13:10 Nasal Cannula 2 11/28/22 13:00 Nasal Cannula 2 11/28/22 12:40 Room Air 11/28/22 12:30 Room Air 11/28/22 08:38 Room Air Diagnostic Findings Knee X-Ray 11/28/22 12:31 XR knee RT 1 or 2V routine HISTORY: 82 years-old Male Surgical Post Op right knee total joint arthroplasty COMPARISON: None TECHNIQUE: 2 views of the right knee FINDINGS: Total joint arthroplasty with patellar resurfacing. Anterior midline skin brianna are noted along with expected postoperative soft tissue swelling with deep tissue air. No acute fracture or malalignment. IMPRESSION: Total joint arthroplasty with expected postoperative changes. ACT 112: Negative or not required by law. The above report was generated using voice recognition software. It may contain grammatical, syntax or spelling errors. Electronically signed by: Paco Salcido M.D. 11/28/2022 1:11 PM PG Care Time/CCT Total # of Minutes Spent Total Time Spent with Patient: Total time spent is greater than 50% in coordination of care (as documented) at patient's floor/unit and/or counseling patient: Coding Level of Care Code 27852 IN/OBS CONSULT LVL 3,45M Diagnoses Primary osteoarthritis of right knee M17.11 GERD (gastroesophageal reflux disease) K21.9 Benign essential hypertension I10 Hypercholesterolemia E78.00
[2022-11-28] MEDS: ceFAZolin 1000MG 1,000 MG/7.5 ML SYR IV SCH (18:02)
[2022-11-28] MEDS: ASPIRIN 81 MG ECTAB PO SCH (19:26)
[2022-11-28] MEDS: DOCUSATE SODIUM 100 MG CAP PO SCH (19:26)
[2022-11-28] MEDS ORDERED: SENNA 8.6 MG TAB PO SCH (21:00)
[2022-11-28] MEDS ORDERED: ATORVASTATIN 40 MG TAB PO SCH (21:00)
[2022-11-29] MEDS: ceFAZolin 1000MG 1,000 MG/7.5 ML SYR IV SCH (02:06)
[2022-11-29] MEDS: ACETAMINOPHEN 500 MG TAB PO SCH (05:11)
[2022-11-29 06:47] LABS: Hematocrit (blood only) 35.8 % (42.0-52.0); Hemoglobin 12.5 g/dl (14.0-18.0); Mean Corpuscular Hemoglobin 29.1 pg (25.0-34.0); Mean Corpuscular Hgb Conc 34.9 g/dL (32.0-36.0); Mean Corpuscular Volume 83.4 fL (80.0-100.0); Mean Platelet Volume 9.4 fL (9.4-12.4); Platelet Count 140 K/uL (130-400); RDW Coefficient of Variation 13.7 % (11.5-14.5); RDW Standard Deviation 41.1 fL (36.4-46.3); Red Blood Count 4.29 M/uL (4.70-6.10); White Blood Count 10.96 K/ul (4.8-10.8)
[2022-11-29 07:05] LABS: BUN Creatinine Ratio 23.4 (10-20); Calcium 8.5 mg/dl (8.5-10.1); Creatinine Clr Calc Pharmacy 34.9 ml/min; Est GFR (African American) 46.5 ml/min; Est GFR (Non-African American) 40.1 ml/min
[2022-11-29] MEDS ORDERED: SODIUM CHLORIDE 0.9% 1000ML 500 ML IV ONE (07:25)
[2022-11-29] MEDS: DOCUSATE SODIUM 100 MG CAP PO SCH (07:40)
[2022-11-29] MEDS: ASPIRIN 81 MG ECTAB PO SCH (07:41)
--- NOTE | 2022-11-29 07:56 | Orthopedic Progress Note ---
Date of Service November 29, 2022 Assessment & Plan (1) Primary osteoarthritis of right knee: Plan: Postop day #1 right total knee -PT/OT -AM labs: Mild leukocytosis likely reactive due to surgical stress and perioperative steroids. Asymptomatic. Hemoglobin from 14-12.5 this morning. Acute blood loss anemia due to surgical loss versus dilutional. Patient has mild increase in creatinine from 1.2 preop to 1.58. Pressures are running low as well. We will give bolus of normal saline. Patient does state he is not drinking as much as he normally does. Encourage p.o. intake. -Pain management as written -DVT prophylaxis: SCDs, teds, aspirin 81 mg twice daily -Discharge planning: Plan on discharge home with plan on outpatient therapy. Patient would like to go home today. We will plan on discharge if okay with medicine and progresses well with therapy.. Admission and Anticipated Discharge Date Admission Date: November 28, 2022 Subjective Patient is postop day 1 right total knee. He is feeling well this morning. No issues overnight. No current complaints. Denies chest pain, shortness of breath, nausea/vomiting/diarrhea, dizziness Review of Systems Review of Systems: All systems reviewed & are unremarkable except as noted in Subjective Physical Exam Physical Exam: Right knee: Dressing is clean, dry, intact. Toes are mobile with good dorsiflexion. No calf tenderness. Able to extend his knee. Distally neurovascular status and sensation grossly intact. Constitutional: WD/WN, vitals as above Results & Data ([facility]) Vital Signs (Past 12 Hours) Vital Signs Temp Pulse Pulse Resp BP Pulse Ox O2 Del Method 11/29/22 07:28 36.6 C 61 16 106/58 L 95 Room Air 11/29/22 03:36 36.8 C 63 16 99/55 L 95 Room Air 11/28/22 23:24 36.6 C 63 18 96/60 L 94 Room Air Laboratory Results Lab Results 11/28/22 11/29/22 11/29/22 Range/Units Unknown 06:22 06:22 WBC 10.96 H (4.8-10.8) K/ul RBC 4.29 L (4.70-6.10) M/uL Hgb 12.5 L (14.0-18.0) g/dl Hct 35.8 L (42.0-52.0) % MCV 83.4 (80.0-100.0) fL MCH 29.1 (25.0-34.0) pg MCHC 34.9 (32.0-36.0) g/dL RDW Std Deviation 41.1 (36.4-46.3) fL RDW Coeff of Leni 13.7 (11.5-14.5) % Plt Count 140 (130-400) K/uL MPV 9.4 (9.4-12.4) fL Sodium 138 (136-145) mmol/L Potassium 4.0 (3.5-5.1) mmol/L Chloride 107 (98-107) mmol/L Carbon Dioxide 25 (21-32) mmol/L Anion Gap 6 (3-11) BUN 37 H (6-23) mg/dl Creatinine 1.58 H (0.6-1.4) mg/dl Est Cr Clr Drug Dosing 34.9 ml/min Est GFR ( Amer) 46.5 ml/min Est GFR (Non-Af Amer) 40.1 ml/min BUN/Creatinine Ratio 23.4 H (10-20) Glucose 152 H (70-99(Fasting)) mg/dl Calcium 8.5 (8.5-10.1) mg/dl SARS-CoV-2, RNA, NAAT NEGATIVE (NEGATIVE)
[2022-11-29] MEDS ORDERED: METOPROLOL SUCC 25MG EXT REL TAB PO SCH (09:00)
[2022-11-29] MEDS ORDERED: hydroCHLOROthiazide 25 MG TAB PO SCH (09:00)
[2022-11-29] MEDS ORDERED: lisinopril 5 MG TAB PO SCH (09:00)
[2022-11-29] MEDS ORDERED: MULTIVITAMIN TAB PO SCH ×2 (09:00)
[2022-11-29] MEDS ORDERED: POTASSIUM CHLORIDE 10 MEQ TABCR PO SCH (09:00)
[2022-11-29] MEDS ORDERED: FERROUS SULFATE 325 MG TAB PO SCH (09:00)
--- NOTE | 2022-11-30 14:12 | Discharge Summary ---
Date of Service November 30, 2022 Admission HPI Per Admitting Provider 82yo male with PMHx significant for CAD, HTN, high cholesterol, tricuspid regurg who presents with ongoing right knee pain. Pain is interfering with his daily activity. He has failed conservative measures and would like to proceed with right knee replacement. Patient denies headaches, sweats, fevers, chills, double vision, blurred vision, cough, sore throat, dysphagia, chest pain, sob, wheezing, n/v/d/c, numbness, tingling, fatigue, urinary symptoms, mood disorders. ROS positive for right knee pain and stiffness. Admission Exam Per Admitting Provider Constitutional: well developed and well nourished; no acute distress Eyes: PERRL, conjunctivae normal, anicteric sclerae A ENMT: external ear and nose normal, oropharynx normal Neck: trachea midline, no thyromegaly Respiratory: normal respiratory effort, lungs clear to auscultation Cardiovascular: RRR, no murmur, no edema Musculoskeletal: Right knee: Mild effusion. Medial joint line tenderness. Moderate crepitation. ROM 0-130 degrees. Stable to valgus and varus stress. Skin: no rashes, warm and dry Neurologic: patellar DTR's 2+ bilat, sensation intact Psychiatric: A+Ox3, euthymic affect Principal Diagnosis Right knee osteoarthritis Discharge Exam Right knee: Dressing is clean, dry, intact. Toes are mobile with good dorsiflexion. No calf tenderness. Able to extend his knee. Distally neurovascular status and sensation grossly intact. Constitutional WD/WN, vitals as above Discharge Data Allergies Allergy/AdvReac Type Severity Reaction Status Date / Time No Known Allergies Allergy Verified 11/28/22 08:33 Consultations 11/23/22 13:45 Consult Hospitalist Routine Procedures Performed Operation Date: 11/28/22 09:55 Actual Procedures p Right Total Knee Arthroplasty(Right) - Omer Gaona MD Ordered Studies 11/28/22 05:00 US - OR guided needle placemen Routine Hospital Course (1) Primary osteoarthritis of right knee: Postop day #1 right total knee -PT/OT -AM labs: Mild leukocytosis likely reactive due to surgical stress and perioperative steroids. Asymptomatic. Hemoglobin from 14-12.5 this morning. Acute blood loss anemia due to surgical loss versus dilutional. Patient has mild increase in creatinine from 1.2 preop to 1.58. Pressures are running low as well. We will give bolus of normal saline. Patient does state he is not drinking as much as he normally does. Encourage p.o. intake. -Pain management as written -DVT prophylaxis: SCDs, teds, aspirin 81 mg twice daily -Discharge planning: Plan on discharge home with plan on outpatient therapy. Patient would like to go home today. We will plan on discharge if okay with medicine and progresses well with therapy.. Lab Results 11/28/22 11/29/22 11/29/22 Range/Units Unknown 06:22 06:22 WBC 10.96 H (4.8-10.8) K/ul RBC 4.29 L (4.70-6.10) M/uL Hgb 12.5 L (14.0-18.0) g/dl Hct 35.8 L (42.0-52.0) % MCV 83.4 (80.0-100.0) fL MCH 29.1 (25.0-34.0) pg MCHC 34.9 (32.0-36.0) g/dL RDW Std Deviation 41.1 (36.4-46.3) fL RDW Coeff of Leni 13.7 (11.5-14.5) % Plt Count 140 (130-400) K/uL MPV 9.4 (9.4-12.4) fL Sodium 138 (136-145) mmol/L Potassium 4.0 (3.5-5.1) mmol/L Chloride 107 (98-107) mmol/L Carbon Dioxide 25 (21-32) mmol/L Anion Gap 6 (3-11) BUN 37 H (6-23) mg/dl Creatinine 1.58 H (0.6-1.4) mg/dl Est Cr Clr Drug Dosing 34.9 ml/min Est GFR ( Amer) 46.5 ml/min Est GFR (Non-Af Amer) 40.1 ml/min BUN/Creatinine Ratio 23.4 H (10-20) Glucose 152 H (70-99(Fasting)) mg/dl Calcium 8.5 (8.5-10.1) mg/dl SARS-CoV-2, RNA, NAAT NEGATIVE (NEGATIVE) Total Time Total Time Spent Total Time Spent (In Minutes): 20 Discharge Plan Discharge Items Patient Disposition: Home - Self-Care Reason For Visit: Right Knee Osteoarthritis Discharge Diagnosis: Right Knee Osteoarthritis Activity: Per Instructions section Weightbearing: Right weightbearing Weightbearing Comment: as tolerated with walker Non-emergency contact: Surgeon Call non-emergency contact if: you have any medication questions, your pain is not controlled, your pain is concerning for you, you have a fever, your temperature is above 101.5, your wound has increased redness and your wound has increased drainage Follow-up/Referrals: Jairo Love MD [Primary Care Provider] - Omer Gaona MD [Surgeon] - (Follow up with Dr Gaona or his PA in 2 weeks from the day of your surgery for your first post operative visit. ) Diet: Heart Healthy Addtl Attending Provider Instructions: ACTIVITY RECOMMENDATIONS: SELF CARE INSTRUCTIONS AFTER TOTAL KNEE REPLACEMENT A. You may need to continue a physical therapy program after discharge from the hospital. There are several options available to you. Your doctor will assist you in selecting the best one for you. 1. An out-patient facility 2 to 3 times a week for therapy or home therapy. 2. Continue working on all exercises taught to you in the hospital. Your goals should be to increase bending of your knee to 90 degrees and beyond and to fully straighten your knee. B. You may progress at your own pace from walking with a walker or crutches to a cane; then to no assistive devices. C. Make walking a part of your daily routine. Be up as much as comfortable with rest periods throughout the day. Rest with leg elevation is very important. Use the ice wrap frequently for the first 3-4 weeks. D. There are no restrictions on activities. You may ride in a car, shop, participate in customer engagement manager and all social activities. E. Wear the long elastic stockings (NOHEMI hose) 20 hours a day for 2 weeks after surgery. They can be removed several times a day for laundering and for a bath. F. You may shower, no tub baths until cleared by your doctor. SPECIAL CARE INSTRUCTIONS: VERY IMPORTANT TO READ AND REVIEW A. There are a few signs you need to watch for after you are home. Call [facility] if you notice any of the followin. Increased severe knee pain. Some pain is expected especially when you exercise. 2. Increased swelling in your leg or knee; pain or swelling of the calf muscle in either lower leg. 3. Any fluid drainage from the incision. 4. Shortness of breath or chest pain. B. Please call [facility] at if you have any concerns or questions about your operation or recovery. The doctor or his nurse will return your call promptly. C. You must take antibiotics before dental work, bladder, bowel or other surgery. Your doctor will provide you with a permanent care to carry describing this precaution. IMPORTANT: * REMEMBER TO TAKE ASPIRIN, 81 MG, TWICE DAILY FOR 4 WEEKS UNLESS OTHERWISE DIRECTED. THIS IS YOUR BLOOD THINNER. * CALL IF INCREASED PAIN, REDNESS, DRAINAGE OR FEVER GREATER THAT 101. * WEAR NOHEMI HOSE 20 HOURS PER DAY FOR 2 WEEKS. * Prevena- This is a large suction dressing covering your incision. This will help pull any excess drainage from the wound and allow your incision to heal properly. You may shower with this if you can keep the unit outside of the shower. If any bleeding or leakage is noted please call your doctor's office. This will remain on your incision for 7 days and then should be removed. This can be done yourself or by the home nursing staff if applicable. The entire unit is disposable once removed. Once removed, keep incision clean and dry. If redness or drainage is noted, please call your surgeon. . FOLLOW UP VISIT: If appointment is not already scheduled: Please call [facility] to make a follow-up appointment for 2 weeks after your surgery at . Stand-Alone Forms: [facility], Smoking Cessation Medications and DC Order Prescriptions: New acetaminophen [Tylenol Extra Strength] 500 mg Tablet 1,000 mg PO Q8 Qty: 60 0RF aspirin 81 mg Tablet,Delayed Release (Dr/Ec) 81 mg PO BID Qty: 60 0RF oxycodone 5 mg Tablet 5 - 10 mg PO .Q4h-6h MDD 6 PRN (Reason: pain) Qty: 30 0RF Rx Instructions: Ongoing therapy, Dr. Gaona supervising Continued atorvastatin 80 mg tablet 80 mg PO PM Qty: 100 3RF lisinopril 5 mg tablet 5 mg PO QAM Qty: 90 3RF omeprazole 20 mg capsule,delayed release(DR/EC) 20 mg PO DAILY PRN (Reason: Heartburn) Qty: 90 3RF hydrochlorothiazide 25 mg tablet 25 mg PO QAM Qty: 90 3RF metoprolol succinate 25 mg tablet extended release 24 hr 25 mg PO QAM Qty: 90 3RF multivitamin Tablet 1 tab PO QAM ferrous sulfate 325 mg (65 mg iron) Tablet 325 mg PO QAM potassium chloride 10 mEq tablet extended release 10 meq PO QAM Discontinued aspirin 81 mg Tablet,Delayed Release (Dr/Ec) 81 mg PO PM acetaminophen [Tylenol Extra Strength] 500 mg tablet 1,000 mg PO Q8 PRN (Reason: Pain) Discharge Orders: Discharge Order (Routine); Ordered 11/29/22 Ordered By: Darwin Bellamy/Other Patient Handouts: Preventing Falls in the Home Admission Data Admit Date/Time: 11/28/22 12:31 Attending Provider: Omer Gaona Admit Provider: Omer Gaona Primary Care Provider: Jairo Love Other Providers: Andres Gutierres Thomas E. Other Interventions: Discharge Summary Assessment (RN) Last Done: 11/29/22 10:34
== END 2022-11-29 11:57 | disposition home or self-care (01) ==
LOC: 3E 07:20 → ASU 07:20